=== PATIENT | female | born 1965 | race Caucasian/White ===

== ENCOUNTER 2017-06-19 17:10 | Inpatient (IN) | payer BC, OTHER ==
[~2017-06-19 17:10] MED LIST: AMLO5TAB2 PO; DOLU1TAB PO; FAMC500T PO; GABA300C5 PO; NORC5TAB PO; TRUV200300 PO
[2017-06-19 17:11] VITALS: BP 134/64; PULSE 154; RESP 28; TEMP 102.3; O2SAT 95
[2017-06-19] MEDS ORDERED: IOHEXOL 350 MG/ML 10 ML VIAL (for RAD DIAG) IVCONTRAST ONE (17:11)
[2017-06-19] MEDS ORDERED: SODIUM CHLOR 0.9% 1000 ML INJ 1,000 ML IV ONE ×2 (17:43→22:30)
[2017-06-19] MEDS ORDERED: SODIUM CHLOR 0.9% 1000 ML INJ 800 ML IV ONE (17:43)
[2017-06-19] MEDS ORDERED: ONDANSETRON HCL 4 MG/2 ML VIAL IV PUSH ONE (17:45)
[2017-06-19] MEDS ORDERED: ACETAMINOPHEN 650 MG SUPP RECTAL ONE (17:45)
[2017-06-19 18:15] LABS: AUTOMATED NEUTROPHIL # 16.5 TH/MM3 (1.8-7.7); HEMATOCRIT 30.7 % (35.0-46.0); HEMO FLAGS DIFF FINAL; LYMPH % 3.1 % (9.0-44.0); LYMPHOCYTE # 0.6 TH/MM3 (1.0-4.8); MEAN CELL VOLUME 97.7 FL (80.0-100.0); MEAN CORPUSCULAR HEMOGLOBIN 33.2 PG (27.0-34.0); MONO % 7.1 % (0.0-8.0); NEUT % 89.8 % (16.0-70.0); PLATELET COUNT 261 TH/MM3 (150-450); RED BLOOD COUNT 3.14 MIL/MM3 (4.00-5.30); RED CELL DISTRIBUTION WIDTH 13.5 % (11.6-17.2); WHITE BLOOD COUNT 18.4 TH/MM3 (4.0-11.0)
[2017-06-19 18:30] LABS: APTT (PATIENT) 33.5 SEC (24.3-30.1); INTERNATIONAL NORMALIZED RATIO 1.1 RATIO; PROTHROMBIN TIME - PATIENT 12.4 SEC (9.8-11.6)
[2017-06-19 18:31] VITALS: RESP 18; O2SAT 98
[2017-06-19 18:43] LABS: ALKALINE PHOSPHATASE 140 U/L (45-117); ALT (GPT) 17 U/L (10-53); ANION GAP 12 MEQ/L (5-15); AST (GOT) 15 U/L (15-37); BICARBONATE 19.9 MEQ/L (21.0-32.0); BLOOD UREA NITROGEN 18 MG/DL (7-18); CHLORIDE 99 MEQ/L (98-107); GLOMERULAR FILTRATION RATE 43 ML/MIN (>89); SODIUM (NA) 131 MEQ/L (136-145); TOTAL BILIRUBIN ADULT 1.3 MG/DL (0.2-1.0)
[2017-06-19 18:47] LABS: POTASSIUM 2.9 MEQ/L (3.5-5.1)
--- NOTE | 2017-06-19 19:03 | PD ---
HPI Chief Complaint: Fever Time Seen by Provider: 18:10 Travel History International Travel<30 days: No Contact w/Intl Traveler<30days: No Traveled to known affect area: No History of Present Illness HPI Patient is a 51-year-old female that presents emergency department evaluation of nausea, vomiting, abdominal pain. Patient states it started on Sunday, she 's been able to tolerate sips of fluids. She denies any diarrhea, she hasn't taken her temperature has felt chilled and sweaty. She denies any shortness of breath or chest pain. Patient has a history of HIV, she is currently on HAART. She denies any sick contacts. She denies any contaminated foods. Abdominal pain is rated 8 out of 10. She states it is crampy. PFSH Past Medical History Hx Anticoagulant Therapy: No Arthritis: Yes (R.A. per pt.) Asthma: No Autoimmune Disease: No Blood Disorders: No Anxiety: No Depression: No Heart Rhythm Problems: No Cancer: No Cardiovascular Problems: Yes (HTN) Chemotherapy: No Chest Pain: No Congestive Heart Failure: No COPD: No Cerebrovascular Accident: No Diabetes: No Diminished Hearing: No Endocrine: No GERD: No Glaucoma: No Genitourinary: No Headaches: No Hepatitis: No Hiatal Hernia: No Hypertension: Yes Immune Disorder: No Kidney Stones: No Medical other: Yes (HIV positive) Musculoskeletal: No Neurologic: Yes Respiratory: No Myocardial Infarction: No Radiation Therapy: No Renal Failure: No Seizures: No Sickle Cell Disease: No Sleep Apnea: No Thyroid Disease: No Ulcer: No : 3 Para: 1 Miscarriage: 1 : 0 Ectopic : Yes (x1) Past Surgical History Abdominal Surgery: No AICD: No Cardiac Surgery: No Ear Surgery: No Endocrine Surgery: No Eye Surgery: No Genitourinary Surgery: No Gynecologic Surgery: Yes (LEFT OOPHARECTOMY ) Hysterectomy: No Joint Replacement: No Oral Surgery: No Pacemaker: No Thoracic Surgery: No Social History Alcohol Use: Yes (occ) Tobacco Use: Yes Substance Use: Yes (Occassional Marijuanna or Lortab per pt.) Allergies-Medications (Allergen,Severity, Reaction): Coded Allergies: promethazine (Unverified Adverse Reaction, Severe, extrapyramidal symptoms , 03/20/17) sts gives her the "jitters"/nervousness Reported Meds & Prescriptions Reported Meds & Active Scripts Active Gabapentin 300 Mg Cap 300 Mg PO TID Take one 300mg tab on day 1 Then take 300mg tab twice/day on day 2 then take 300mg tab three times/day thereafter [place] (Hydrocodone-Acetaminophen) 5-325 mg Tab 1 Tab PO Q4H PRN Amlodipine (Amlodipine Besylate) 5 Mg Tab 5 Mg PO DAILY Reported Famciclovir 500 Mg Tab 500 Mg PO DAILY Tivicay (Dolutegravir Sodium) 50 Mg Tab 50 Mg PO DAILY Truvada (Emtricitabine-Tenofovir Disoproxil Fumarate) 200-300 Mg Tab 1 Tab PO DAILY Review of Systems Except as stated in HPI: all other systems reviewed are Neg General / Constitutional: Positive: Fever, Chills HENT: Positive: Headaches Cardiovascular: Positive: Tachycardia, No: Chest Pain or Discomfort Respiratory: No: Shortness of Breath Gastrointestinal: Positive: Nausea, Vomiting, Abdominal Pain, No: Diarrhea Genitourinary: No: Dysuria Musculoskeletal: Positive: Myalgias Skin: No Change in Pigmentation Neurologic: Positive: Weakness, No: Dizziness, Focal Abnormalities Physical Exam Narrative GENERAL: Thin, well-developed, alert acutely ill-appearing female. In no acute distress. SKIN: Warm and dry. Clammy HEAD: Atraumatic. Normocephalic. EYES: Pupils equal and round. No scleral icterus. No injection or drainage. ENT: No nasal bleeding or discharge. Mucous membranes pink and moist. NECK: Trachea midline. No JVD. No meningeal signs. CARDIOVASCULAR: Tachycardic RESPIRATORY: No accessory muscle use. Clear to auscultation. Breath sounds equal bilaterally. GASTROINTESTINAL: Abdomen soft, tender to palpation diffusely, more so in the right upper quadrant, nondistended. Hepatic and splenic margins not palpable. Positive bowel sounds. MUSCULOSKELETAL: Extremities without clubbing, cyanosis, or edema. No obvious deformities. NEUROLOGICAL: Awake and alert. No obvious cranial nerve deficits. Motor grossly within normal limits. Five out of 5 muscle strength in the arms and legs. Normal speech. PSYCHIATRIC: Appropriate mood and affect; insight and judgment normal. Data Data Last Documented VS Vital Signs Date Time Temp Pulse Resp B/P (MAP) Pulse Ox O2 Delivery O2 Flow Rate FiO2 06/19/17 22:10 77 18 88/53 (65) 98 Room Air 06/19/17 17:11 102.3 Orders Orders Sepsis Workup Initiated (06/19/17 ) Complete Blood Count With Diff (06/19/17 17:16) Comprehensive Metabolic Panel (06/19/17 17:16) Prothrombin Time / Inr (Pt) (06/19/17 17:16) Act Partial Throm Time (Ptt) (06/19/17 17:16) Lactic Acid Sepsis Protocol (06/19/17 17:16) Urinalysis - C+S If Indicated (06/19/17 17:16) Influenzae A/B Antigen (06/19/17 17:16) Blood Culture (06/19/17 17:16) Chest, Pa & Lat (06/19/17 17:16) Lipase (06/19/17 17:16) Sepsis Workup Initiated (06/19/17 ) Acetaminophen Supp (Tylenol Supp) (06/19/17 17:45) Ondansetron Inj (Zofran Inj) (06/19/17 17:45) Sodium Chlor 0.9% 1000 Ml Inj (Ns 1000 M (06/19/17 17:43) Sodium Chlor 0.9% 1000 Ml Inj (Ns 1000 M (06/19/17 17:43) Iv Access Insert/Monitor (06/19/17 17:43) Ecg Monitoring (06/19/17 17:43) Oximetry (06/19/17 17:43) NPO (06/19/17 17:43) Potassium Chlor 20 Meq Premix (Kcl 20 Me (06/19/17 19:00) Ketorolac Inj (Toradol Inj) (06/19/17 20:00) Ct Abd/Pel W Iv Contrast(Rout) (06/19/17 ) Iohexol 350 Inj (Omnipaque 350 Inj) (06/19/17 17:11) Cath For Specimen (06/19/17 21:21) Urine Culture (06/19/17 21:30) Sodium Chlor 0.9% 1000 Ml Inj (Ns 1000 M (06/19/17 22:30) Vancomycin Inj (Vancomycin Inj) (06/19/17 22:27) Piperacil-Tazo 4.5 Gm Premix (Zosyn 4.5 (06/19/17 22:27) Admit Order (Ed Use Only) (06/19/17 22:38) Labs Laboratory Tests Test 06/19/17 18:00 11/14/17 21:30 White Blood Count 18.4 TH/MM3 Red Blood Count 3.14 MIL/MM3 Hemoglobin 10.4 GM/DL Hematocrit 30.7 % Mean Corpuscular Volume 97.7 FL Mean Corpuscular Hemoglobin 33.2 PG Mean Corpuscular Hemoglobin Concent 34.0 % Red Cell Distribution Width 13.5 % Platelet Count 261 TH/MM3 Mean Platelet Volume 7.8 FL Neutrophils (%) (Auto) 89.8 % Lymphocytes (%) (Auto) 3.1 % Monocytes (%) (Auto) 7.1 % Eosinophils (%) (Auto) 0.0 % Basophils (%) (Auto) 0.0 % Neutrophils # (Auto) 16.5 TH/MM3 Lymphocytes # (Auto) 0.6 TH/MM3 Monocytes # (Auto) 1.3 TH/MM3 Eosinophils # (Auto) 0.0 TH/MM3 Basophils # (Auto) 0.0 TH/MM3 CBC Comment DIFF FINAL Differential Comment Prothrombin Time 12.4 SEC Prothromb Time International Ratio 1.1 RATIO Activated Partial Thromboplast Time 33.5 SEC Blood Urea Nitrogen 18 MG/DL Creatinine 1.32 MG/DL Random Glucose 157 MG/DL Total Protein 8.0 GM/DL Albumin 2.5 GM/DL Calcium Level 8.2 MG/DL Alkaline Phosphatase 140 U/L Aspartate Amino Transf (AST/SGOT) 15 U/L Alanine Aminotransferase (ALT/SGPT) 17 U/L Total Bilirubin 1.3 MG/DL Sodium Level 131 MEQ/L Potassium Level 2.9 MEQ/L Chloride Level 99 MEQ/L Carbon Dioxide Level 19.9 MEQ/L Anion Gap 12 MEQ/L Estimat Glomerular Filtration Rate 43 ML/MIN Lactic Acid Level 2.0 mmol/L Lipase 54 U/L Urine Color YELLOW Urine Turbidity HAZY Urine pH 7.0 Urine Specific [place] 1.025 Urine Protein 100 mg/dL Urine Glucose (UA) NEG mg/dL Urine Ketones NEG mg/dL Urine Occult Blood MOD Urine Nitrite POS Urine Bilirubin NEG Urine Urobilinogen 2.0 MG/DL Urine Leukocyte Esterase LARGE Urine RBC 4 /hpf Urine WBC 126 /hpf Urine Squamous Epithelial Cells 12 /hpf Urine Transitional Epithelial Cells 2 /hpf Urine Amorphous Sediment RARE Urine Bacteria MANY /hpf Microscopic Urinalysis Comment CATH-CULTURE IND MDM Medical Decision Making Medical Screen Exam Complete: Yes Emergency Medical Condition: Yes Interpretation(s) Vital Signs Date Time Temp Pulse Resp B/P (MAP) Pulse Ox O2 Delivery O2 Flow Rate FiO2 06/19/17 22:10 77 18 88/53 (65) 98 Room Air 06/19/17 18:31 18 98 Room Air 06/19/17 17:11 102.3 154 28 134/64 (87) 95 Last Impressions Chest X-Ray 06/19/17 1716 Signed Impressions: Service Date/Time: Monday, June 19, 2017 18:51 - CONCLUSION: No acute disease. Ld Bedoya MD Laboratory Tests Test 06/19/17 18:00 06/19/17 21:30 White Blood Count 18.4 TH/MM3 Red Blood Count 3.14 MIL/MM3 Hemoglobin 10.4 GM/DL Hematocrit 30.7 % Mean Corpuscular Volume 97.7 FL Mean Corpuscular Hemoglobin 33.2 PG Mean Corpuscular Hemoglobin Concent 34.0 % Red Cell Distribution Width 13.5 % Platelet Count 261 TH/MM3 Mean Platelet Volume 7.8 FL Neutrophils (%) (Auto) 89.8 % Lymphocytes (%) (Auto) 3.1 % Monocytes (%) (Auto) 7.1 % Eosinophils (%) (Auto) 0.0 % Basophils (%) (Auto) 0.0 % Neutrophils # (Auto) 16.5 TH/MM3 Lymphocytes # (Auto) 0.6 TH/MM3 Monocytes # (Auto) 1.3 TH/MM3 Eosinophils # (Auto) 0.0 TH/MM3 Basophils # (Auto) 0.0 TH/MM3 CBC Comment DIFF FINAL Differential Comment Prothrombin Time 12.4 SEC Prothromb Time International Ratio 1.1 RATIO Activated Partial Thromboplast Time 33.5 SEC Blood Urea Nitrogen 18 MG/DL Creatinine 1.32 MG/DL Random Glucose 157 MG/DL Total Protein 8.0 GM/DL Albumin 2.5 GM/DL Calcium Level 8.2 MG/DL Alkaline Phosphatase 140 U/L Aspartate Amino Transf (AST/SGOT) 15 U/L Alanine Aminotransferase (ALT/SGPT) 17 U/L Total Bilirubin 1.3 MG/DL Sodium Level 131 MEQ/L Potassium Level 2.9 MEQ/L Chloride Level 99 MEQ/L Carbon Dioxide Level 19.9 MEQ/L Anion Gap 12 MEQ/L Estimat Glomerular Filtration Rate 43 ML/MIN Lactic Acid Level 2.0 mmol/L Lipase 54 U/L Vital Signs Date Time Temp Pulse Resp B/P (MAP) Pulse Ox O2 Delivery O2 Flow Rate FiO2 06/19/17 18:31 18 98 Room Air 06/19/17 17:11 102.3 154 28 134/64 (87) 95 Differential Diagnosis Influenza versus viral syndrome versus cholecystitis versus pancreatitis versus obstruction versus metabolic abnormality versus other Narrative Course Patient is a 51-year-old HIV-positive female presenting to the emergency department for evaluation of fevers and abdominal pain. Patient reports nausea and vomiting, her symptoms started on Sunday. Patient is tachycardic and hypotensive on arrival. She appears uncomfortable and is diaphoretic. Labs and imaging ordered and pending. Sepsis workup initiated. Acetaminophen suppository ordered. CBC with a white count of 18.4 with left shift Chemistry with a sodium of 131, potassium 2.9. IV potassium replacement ordered. Creatinine 1.32, lactic acid 2.0, lipase is 54. Chest x-ray which was read by the radiologist as no acute disease. CT of abdomen and pelvis shows no acute abnormality. Patient's vital signs are reassessed, she is currently afebrile. Her blood pressure is 88/54, a third liter of IV fluids ordered. Patient reevaluated, she is resting comfortably, she is alert. She reports improvement in her body aches, abdominal pain, headache. Urinalysis is consistent with a urinary tract infection. Patient will be started on antibiotics empirically. [facility] paged for admission. Discussed with Dr. Merida who accepted admission. Admit orders placed. Sepsis Criteria SIRS Criteria (2 or more): Temp > 100.9 or < 96.8, Heart rate over 90, WBC > 14424, < 4000 or > 10% bands Severe Sepsis (+one): Hypotension Diagnosis Primary Impression: Sepsis secondary to UTI Additional Impression: HIV (human immunodeficiency virus infection) Admitting Information Admitting Physician Requests: Admit Condition: Stable Anne Jeffery ADMINISTRATIVE INTERN Jun 19, 2017 19:03
[2017-06-19] MEDS ORDERED: KETOROLAC TROMETHAMINE 30 MG/ML (IVP) VIAL IV PUSH ONE (20:00)
--- NOTE | 2017-06-19 20:17 | RADRPT ---
EXAM DATE/TIME: 06/19/2017 18:51 [facility] COMPARISON: No previous studies available for comparison. INDICATIONS : Flu-like symptoms for several days. MEDICAL HISTORY : None. SURGICAL HISTORY : None. ENCOUNTER: Initial ACUITY: 3 days PAIN SCORE: 7/10 LOCATION: Bilateral upper chest FINDINGS: PA and lateral views of the chest demonstrate the lungs to be symmetrically aerated without evidence of mass, infiltrate or effusion. The cardiomediastinal contours are unremarkable. Osseous structure s are intact. CONCLUSION: No acute disease. Ld Bedoya MD on June 19, 2017 at 20:16 Board Certified Radiologist. This report was verified electronically.
[2017-06-19] MEDS: POTASSIUM CHLOR 20 MEQ PREMIX 100 ML IV SCH ×2 (20:31→23:05)
[2017-06-19 22:10] VITALS: BP 88/53; PULSE 77; RESP 18; O2SAT 98
--- NOTE | 2017-06-19 22:14 | RADRPT ---
EXAM DATE/TIME: 06/19/2017 21:08 [facility] COMPARISON: No previous studies available for comparison. INDICATIONS : Right upper quadrant pain radiating to back with nausea and vomiting. IV CONTRAST: 75 cc Omnipaque 350 (iohexol) IV ORAL CONTRAST: No oral contrast ingested. RADIATION DOSE: 4.73 CTDIvol (mGy) MEDICAL HISTORY : HIV. Cardiovascular disease Rheumatoid arthritis.Hypertension. SURGICAL HISTORY : Tubal ligation. ENCOUNTER: Initial ACUITY: 3 days PAIN SCALE: 6/10 LOCATION: Right upper quadrant TECHNIQUE: Volumetric scanning of the abdomen and pelvis was performed. Using automated exposure control and ad justment of the mA and/or kV according to patient size, radiation dose was kept as low as reasonably achievable to obtain optimal diagnostic quality images. DICOM format image data is available electro nically for review and comparison. FINDINGS: LOWER LUNGS: There is linear density at the bases bilaterally likely related to scarring or atelectasis. LIVER: The liver appears mildly heterogeneous without lesion. There is no dilation of the biliary tree. No calcified gallstones. SPLEEN: Normal size without lesion. PANCREAS: Within normal limits. KIDNEYS: Normal in size and shape. There is no mass, stone or hydronephrosis. ADRENAL GLANDS: Within normal limits. VASCULAR: There is no aortic aneurysm. BOWEL/MESENTERY: The stomach, small bowel, and colon demonstrate no acute abnormality. There is no free intraperitone al air or fluid. ABDOMINAL WALL: Within normal limits. RETROPERITONEUM: There is no lymphadenopathy. BLADDER: No wall thickening or mass. REPRODUCTIVE: Within normal limits. INGUINAL: There is no lymphadenopathy or hernia. MUSCULOSKELETAL: There is degenerative change of the lower lumbar spine. CONCLUSION: No acute abnormality is seen. There is mild heterogeneity of the liver. Ld Bedoya MD on June 19, 2017 at 22:10 Board Certified Radiologist. This report was verified electronically.
[2017-06-19 22:23] LABS: BACTERIA, URINE MANY /hpf; BLOOD, URINE MOD (NEG); GLUCOSE,URINE NEG (NEG); KETONE, URINE NEG (NEG); NITRITE,URINE POS (NEG); SQUAMOUS EPITHELIAL CELL URINE 12 /hpf (0-5); TRANSITIONAL EPI CELLS, URINE 2 /hpf; URINE COLOR YELLOW (YELLW/STRAW)
[2017-06-19 22:24] LABS: COMMENT (UR) CATH-CULTURE IND; CULTURE IF INDICATED CATH CULTURE IND
[2017-06-19] MEDS ORDERED: PIPERACIL-TAZO 4.5 GM PREMIX 100 ML IV STA (22:27)
[2017-06-19] MEDS ORDERED: VANCOMYCIN INJ 1,000 MG in SODIUM CHLOR 0.9% 250 ML INJ 250 ML IV STA (22:27)
[2017-06-19] MEDS ORDERED: ONDANSETRON HCL 4 MG/2 ML VIAL IVP PRN (23:15)
[2017-06-19] MEDS ORDERED: SODIUM CHLORIDE 0.9% FLUSH 10 ML FLUSH IV FLUSH PRN (23:15)
[2017-06-19] MEDS ORDERED: NALOXONE HCL 0.4 MG/ML AMP IV PUSH PRN (23:15)
[2017-06-20] VITALS (9 sets, daily range): BP systolic 87–116; BP diastolic 51–58; PULSE 78–101; RESP 16–19; TEMP 98.3–100.3; O2SAT 96–100
[2017-06-20] MEDS: SODIUM CHLOR 0.9% 1000 ML INJ 1,000 ML IV SCH ×3 (00:07→19:07)
[2017-06-20] MEDS: ENOXAPARIN SODIUM 40 MG/0.4 ML SYRINGE SQ SCH ×2 (02:00→22:00)
[2017-06-20] MEDS ORDERED: POTASSIUM CHLORIDE 20 MEQ CONTROLLED RELEASE TAB PO ONE (03:30)
--- NOTE | 2017-06-20 04:43 | HHI.HP ---
HPI Service Family Medicine Primary Care Physician Unknown Admission Diagnosis UROSEPSIS Diagnoses: International Travel<30 Days: No Contact w/Intl Traveler<30days: No Known Affected Area: No History of Present Illness 51 year old female with a history of HIV disease presents to the ED with epigastric abdominal pain. Patient of Dr. Pacheco in the [facility]. The pain has been present for the past 2 to 3 weeks and is feeling worse today. She has decreased appetite and vomits about 4 times a day. Vomit is non-bilious and non-bloody. Her bowel movements have been normal, with well-formed stools that are non- bloody and without mucous. Her PO intake is down and she is eating mostly soups. She felt dehydrated on admission but now feels a lot better after receiving IV fluids. She also has been having fevers and chills. She had a similar episode in May that she says self-resolved. In the ED she was tachycardic with BP down to 88/53 and pulse up to 154, and temperature up to 102.3. She received three boluses of one liter normal saline in the ED follows by 100 mls/hr for maintenance. She feels much better since receiving the fluids. Currently she only has abdominal pain, without feeling lightheaded. Her pulse is now down to 80's to 90's, and she remains hypotensive at 99/60 during interview. Her abdominal pain is currently controlled but does become severe at times. CT of the abdomen and pelvis done in the ED shows no acute abnormality. She was also started on vancomycin and Zosyn. Workup thus far has revealed likely pyelonephritis, with positive nitrites and large leukocyte esterase. She reports no dysuria, frequent urination, or flank pain. She reports no blood in the urine. Regarding her HIV disease her last labs were drawn in November and showed a CD4 273, CD8 273, CD4/8 ratio 1.0, and undetectable viral load. She was always consistent with her HAART medications, but for the past month or so she has been inconsistent due to abdominal pain and vomiting. She follows with Dr. Mariano. She reports no history of opportunistic infections and states that her disease has been well controlled. On review of systems, she had a headache earlier that has resolved, no neck stiffness, no runny nose, coughing, sore throat, chest pain, shortness of breath, calf tenderness. She has not noticed any lymph nodes and no new skin findings. She does report significant weight loss recently due to poor appetite, abdominal pain, and vomiting. Review of Systems Constitutional: COMPLAINS OF: Diaphoretic episodes, Fever, Weight loss, Chills , Change in appetite, Night Sweats Endocrine: DENIES: Heat/cold intolerance, Polyuria, Polyphagia Ears, nose, mouth, throat: DENIES: Throat pain, Ear Pain, Running Nose, Sinus Pain Respiratory: DENIES: Cough, Wheezing, Shortness of breath Cardiovascular: DENIES: Chest pain, Palpitations, Syncope, Lower Extremity Edema Gastrointestinal: COMPLAINS OF: Abdominal pain, Nausea, Vomiting, DENIES: Black stools, Bloody stools, Constipation, Diarrhea Genitourinary: DENIES: Abnormal vaginal bleeding, Urinary frequency, Urinary incontinence Musculoskeletal: COMPLAINS OF: Back pain (chronic), DENIES: Muscle aches, Neck pain Integumentary: DENIES: Rash Neurologic: DENIES: Localized weakness, Tremor Psychiatric: DENIES: Anxiety, Depression Past Family Social History Past Medical History Ectopic age 39 Rheumatoid arthritis since 2003: takes Tylenol and Motrin Sjogren's Syndrome HIV disease: sees Dr. Mariano, infectious disease HAART: not taking regularly last couple months due to stomach problems, was compliant before that Most recent labs were drawn in November and showed a CD4 273, CD8 273, CD4/8 ratio 1.0, and undetectable viral load Hypertension: was taking taking amlodipine 5 mg daily, but not compliant Infectious disease doctor [place] Does not have licensed physical therapist: was supposed to Dr. Mccoy but never did OB hx: Menarche at age 15 Menstruation Q28 days, lasts 4 days Past Surgical History Ectopic Reported Medications Reported Meds & Active Scripts Active Gabapentin 300 Mg Cap 300 Mg PO TID Take one 300mg tab on day 1 Then take 300mg tab twice/day on day 2 then take 300mg tab three times/day thereafter [place] (Hydrocodone-Acetaminophen) 5-325 mg Tab 1 Tab PO Q4H PRN Amlodipine (Amlodipine Besylate) 5 Mg Tab 5 Mg PO DAILY Reported Famciclovir 500 Mg Tab 500 Mg PO DAILY Tivicay (Dolutegravir Sodium) 50 Mg Tab 50 Mg PO DAILY Truvada (Emtricitabine-Tenofovir Disoproxil Fumarate) 200-300 Mg Tab 1 Tab PO DAILY Allergies: Coded Allergies: promethazine (Unverified Adverse Reaction, Severe, extrapyramidal symptoms , 03/20/17) sts gives her the "jitters"/nervousness Active Ordered Medications Inpatient Medications Acetaminophen (Tylenol Supp) 650 mg ONCE ONCE RECTAL Last administered on 18:33; Start 06/19/17 at 17:45; Stop 06/19/17 at 17:46; Status DC Acetaminophen (Tylenol) 650 mg Q4H PRN PO TEMP > 100.4; Start 06/19/17 at 23: 15 Amlodipine Besylate (Norvasc) 5 mg DAILY PO ; Start 06/20/17 at 09:00 Emtricitabine/ Tenofovir (Truvada 200-300 Mg) 1 tab DAILY PO ; Start 06/20/17 at 09:00 Enoxaparin Sodium (Lovenox Inj) 40 mg Q24H SQ Last administered on 06/20/17 02:00; Start 06/19/17 at 23:15 Famciclovir (Famvir) 500 mg DAILY PO ; Start 06/20/17 at 09:00 Gabapentin (Neurontin) 300 mg TID PO ; Start 06/20/17 at 09:00 Ketorolac Tromethamine (Toradol Inj) 30 mg ONCE ONCE IV PUSH Last administered on 06/19/17 20:07; Start 06/19/17 at 20:00; Stop 06/19/17 at 20 :01; Status DC Naloxone HCl (Narcan Inj) 0.4 mg UNSCH PRN IV PUSH SEE LABEL COMMENTS; Start 06/19/17 at 23:15 Ondansetron HCl (Zofran Inj) 4 mg Q6H PRN IVP NAUSEA OR VOMITING; Start at 23:15 Piperacillin Sod/ Tazobactam Sod 50 ml @ 100 mls/hr Q6H IV ; Start 06/20/17 at 08:00 Potassium Chloride (KCl) 40 meq ONCE ONCE PO Last administered on 06/20/17 03:58; Start 06/20/17 at 03:30; Stop 06/20/17 at 03:34; Status DC Sodium Chloride (NS Flush) 2 ml BID IV FLUSH ; Start 06/20/17 at 09:00 Vancomycin HCl 1000 mg/Sodium Chloride 250 ml @ 250 mls/hr ONCE STAT IV Last administered on 06/20/17t 02:54; Start 06/19/17 at 22:27; Stop 06/19/17 at 23 :26; Status DC Family History Unknown, adopted Social History Lives with boyfriend and mother in law, and boyfriend's 7 year old daughter Was going back and forth to [place] to take care of ailing father, recently put on hospice 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 BP 99/60, pulse 80's-90's during interview. Skin: No rashes or lesions, normal skin turgor, skin is moist HEENT: Normocephalic, no nasal discharge, moist oropharynx, pharynx is normal Neck: Supple, no meningeal signs, no lymphadenopathy CV: RRR, no murmurs, rubs, or gallops, pulse 80's-90's, normal cap refill, pulses regular, appears well perfused Lungs: CTAB, no wheezing, no consolidations Abdomen: Tender to palpation in the epigastric region, no guarding or rebound tenderness, bowel sounds present, soft, nondistended, no peritoneal signs Ext: No swelling, normal range of motion Neuro: Awake, alert, nonfocal Psych: Appropriate mood and affect Laboratory Laboratory Tests Test 06/19/17 18:00 06/19/17 21:30 White Blood Count 18.4 Red Blood Count 3.14 Hemoglobin 10.4 Hematocrit 30.7 Mean Corpuscular Volume 97.7 Mean Corpuscular Hemoglobin 33.2 Mean Corpuscular Hemoglobin Concent 34.0 Red Cell Distribution Width 13.5 Platelet Count 261 Mean Platelet Volume 7.8 Neutrophils (%) (Auto) 89.8 Lymphocytes (%) (Auto) 3.1 Monocytes (%) (Auto) 7.1 Eosinophils (%) (Auto) 0.0 Basophils (%) (Auto) 0.0 Neutrophils # (Auto) 16.5 Lymphocytes # (Auto) 0.6 Monocytes # (Auto) 1.3 Eosinophils # (Auto) 0.0 Basophils # (Auto) 0.0 CBC Comment DIFF FINAL Differential Comment Prothrombin Time 12.4 Prothromb Time International Ratio 1.1 Activated Partial Thromboplast Time 33.5 Blood Urea Nitrogen 18 Creatinine 1.32 Random Glucose 157 Total Protein 8.0 Albumin 2.5 Calcium Level 8.2 Alkaline Phosphatase 140 Aspartate Amino Transf (AST/SGOT) 15 Alanine Aminotransferase (ALT/SGPT) 17 Total Bilirubin 1.3 Sodium Level 131 Potassium Level 2.9 Chloride Level 99 Carbon Dioxide Level 19.9 Anion Gap 12 Estimat Glomerular Filtration Rate 43 Lactic Acid Level 2.0 Lipase 54 Urine Color YELLOW Urine Turbidity HAZY Urine pH 7.0 Urine Specific Maurice 1.025 Urine Protein 100 Urine Glucose (UA) NEG Urine Ketones NEG Urine Occult Blood MOD Urine Nitrite POS Urine Bilirubin NEG Urine Urobilinogen 2.0 Urine Leukocyte Esterase LARGE Urine RBC 4 Urine WBC 126 Urine Squamous Epithelial Cells 12 Urine Transitional Epithelial Cells 2 Urine Amorphous Sediment RARE Urine Bacteria MANY Microscopic Urinalysis Comment CATH-CULTURE IND Date/Time Source Procedure Growth Status 06/19/17 18:09 Blood Peripheral Aerobic Blood Culture Pending Received 06/19/17 18:09 Blood Peripheral Anaerobic Blood Culture Pending Received 06/19/17 18:30 Nasal Washing Influenza Types A,B Antigen (WOODY) - Final NEGATIVE FOR FLU A AND B ANTIGEN.... Complete 06/19/17 21:30 Urine Catheterized Urine Urine Culture Pending Received Result Diagram: 06/19/17 1800 06/19/17 1800 Imaging Last 72 hours Impressions Chest X-Ray 06/19/17 1716 Signed Impressions: Service Date/Time: Monday, June 19, 2017 18:51 - CONCLUSION: No acute disease. Ld Bedoya MD Abdomen/Pelvis CT 06/19/17 0000 Signed Impressions: Service Date/Time: Monday, June 19, 2017 21:08 - CONCLUSION: No acute abnormality is seen. There is mild heterogeneity of the liver. Ld Bedoya MD Septic Shock Reassessment Heart: Regular rate and rhythm, Other (was initially tachycardic, resolved with IV fluids) Lungs: Clear Skin: Warm Capillary Refill: <2 seconds Caprini VTE Risk Assessment Caprini VTE Risk Assessment: Mod/High Risk (score >= 2) Caprini Risk Assessment Model Point Value = 1 Point Value = 2 Point Value = 3 Point Value = 5 Age 41-60 Minor surgery BMI > 25 kg/m2 Swollen legs Varicose veins or History of unexplained or recurrent spontaneous Oral contraceptives or hormone replacement Sepsis (< 1 month) Serious lung disease, including pneumonia (< 1 month) Abnormal pulmonary function Acute myocardial infarction Congestive heart failure (< 1 month) History of inflammatory bowel disease Medical patient at bed rest Age 61-74 Arthroscopic surgery Major open surgery (> 45 min) Laparoscopic surgery (> 45 min) Malignancy Confined to bed (> 72 hours) Immobilizing plaster cast Central venous access Age >= 75 History of VTE Family history of VTE Factor V Leiden Prothrombin [id number] Lupus anticoagulant Anticardiolipin antibodies Elevated serum homocysteine Heparin-induced thrombocytopenia Other congenital or acquired thrombophilia Stroke (< 1 month) Elective arthroplasty Hip, pelvis, or leg fracture Acute spinal cord injury (< 1 month) Prophylaxis Regimen Total Risk Factor Score Risk Level Prophylaxis Regimen 0-1 Low Early ambulation 2 Moderate Order ONE of the following: *Sequential Compression Device (SCD) *Heparin 5000 units SQ BID 3-4 Higher Order ONE of the following medications: *Heparin 5000 units SQ TID *Enoxaparin/Lovenox 40 mg SQ daily (WT < 150 kg, CrCl > 30 mL/min) *Enoxaparin/Lovenox 30 mg SQ daily (WT < 150 kg, CrCl > 10-29 mL/min) *Enoxaparin/Lovenox 30 mg SQ BID (WT < 150 kg, CrCl > 30 mL/min) AND/OR *Sequential Compression Device (SCD) 5 or more Highest Order ONE of the following medications: *Heparin 5000 units SQ TID (Preferred with Epidurals) *Enoxaparin/Lovenox 40 mg SQ daily (WT < 150 kg, CrCl > 30 mL/min) *Enoxaparin/Lovenox 30 mg SQ daily (WT < 150 kg, CrCl > 10-29 mL/min) *Enoxaparin/Lovenox 30 mg SQ BID (WT < 150 kg, CrCl > 30 mL/min) AND *Sequential Compression Device (SCD) Assessment and Plan Assessment and Plan 51 year old female with a history of HIV disease presents with severe sepsis likely secondary to pyelonephritis. Code Status FULL CODE Discussed Condition With Will discuss with Dr. Patterson, Dr. Newton Problem List: (1) Severe sepsis ICD Codes: A41.9 - Sepsis, unspecified organism; R65.20 - Severe sepsis without septic shock Status: Acute Plan: Presented with severe sepsis, beginning stages of septic shock, with white count 18.4, pulse up to 154, fever up to 102.3, and BP down to 88/53. Lactic acid 2.0. Source likely pyelonephritis given UA with positive nitrite, large leukocyte esterase, 126 WBC, trace blood. No flank pain on exam, no report of dysuria. Chest x-ray normal. Having abdominal pain but exam relatively benign. Abdominal and pelvic CT negative for acute process. No neck stiffness or meningeal signs on exam. - Received three 1 liter boluses in the ED with correction of pulse, BP on the low side but MAP improved from 65 to 73. - Continue with maintenance fluids 100 mls/hr of normal saline, repeat boluses as needed. - Low threshold for ICU if declining, monitor vital signs closely. - Treat broadly with Vancomycin and Zosyn, pharmacy consult for renal dosing - Follow blood and urine cultures - Check CD4, CD8, and HIV viral load. - Tylenol PRN for fevers (2) Pyelonephritis ICD Codes: N12 - Tubulo-interstitial nephritis, not specified as acute or chronic Status: Acute Plan: Meets criteria for complicated pyelonephritis given UA results indicating WBC, large leukocyte esterase, and positive nitrite in urine, high fevers, elevated white count, tachycardia, hypotension. Immunosuppression with history of HIV disease. - Continue Vancomycin and Zosyn for broad coverage (3) Epigastric abdominal pain ICD Codes: R10.13 - Epigastric pain Status: Acute Plan: Having epigastric abdominal pain for the last couple months associated with nausea and vomiting, stools normal. Differential is broad, including peptic ulcer disease, gastroenteritis, ischemic colitis, generalized colitis, c.diff, biliary tract disease, pancreatitis, inferior TN. Lipase is normal. AST and ALT are normal. ALP slightly high at 140. CT abdomen/pelvis shows no acute disease. - Will check one time troponin/EKG - Consult GI for chronic abdominal pain and nausea/vomiting and uncertain diagnosis, may benefit from EGD to rule out PUD - Monitor hemoglobin/hematocrit in case of GI bleed, check hemoccult - Pain management with Percocet 5-325 for mild pain, 10-325 for severe pain. - Zofran PRN for nausea/vomiting, bowel regimen PRN if constipated. - Continue ranitidine and Tums, which she was taking at home. - Full liquid diet, advance as tolerated (4) HIV (human immunodeficiency virus infection) ICD Codes: Z21 - Human immunodeficiency virus (HIV) infection Status: Chronic Plan: History of HIV, was controlled in the past, but inconsistent HAART use recently due to abdominal pain and vomiting. Most recent labs were drawn in November and showed a CD4 273, CD8 273, CD4/8 ratio 1.0, and undetectable viral load. Infectious disease Dr. Mariano. - Check CD4, CD8, and viral load - Resume HAART medications - May consult infectious disease if not quickly improving (5) Acute kidney injury ICD Codes: N17.9 - Acute kidney failure, unspecified Status: Acute Plan: Acute kidney injury, likely prerenal from sepsis, dehydration. - Continue IV fluids - Avoid nephrotoxic agents - Renally dose medications - Nephrology consult if not resolving with IV fluids (6) Rheumatoid arthritis ICD Codes: M06.9 - Rheumatoid arthritis, unspecified Status: Chronic Plan: Stable - Hold NSAIDs for ZAIN - See abdominal pain for pain regimen (7) No contraindication to deep vein thrombosis (DVT) prophylaxis ICD Codes: Z78.9 - Other specified health status Status: Acute Plan: Lovenox 40 mg daily, hold if hemoglobin dropping or concern for peptic ulcer disease (8) Nutrition, metabolism, and development symptoms ICD Codes: R63.8 - Other symptoms and signs concerning food and fluid intake Status: Acute Plan: Received three 1 liter boluses in ED Continue with maintenance fluids normal saline at 100 mls/hr Full liquid diet, advance as tolerated Low potassium, replace and monitor Low sodium/chloride secondary to dehydration, continue IV fluids and monitor Physician Certification 2 Midnight Certification Type: Admission for Inpatient Services Order for Inpatient Services The services are ordered in accordance with Medicare regulations or non- Medicare payer requirements, as applicable. In the case of services not specified as inpatient-only, they are appropriately provided as inpatient services in accordance with the 2-midnight benchmark. Estimated LOS (days): 3 days is the estimated time the patient will need to remain in the hospital, assuming treatment plan goals are met and no additional complications. Post-Hospital Plan: Demar Christianson MD R3 Jun 20, 2017 04:43
[2017-06-20] MEDS ORDERED: SENNOSIDES 8.6 MG TAB PO PRN (05:00)
[2017-06-20] MEDS ORDERED: BISACODYL 10 MG SUPP RECTAL PRN (05:00)
[2017-06-20] MEDS ORDERED: MAGNESIUM HYDROXIDE SUSP 30 ML CUP PO PRN (05:00)
[2017-06-20] MEDS ORDERED: LACTULOSE SYRUP 20 GM/30 ML CUP PO PRN (05:00)
[2017-06-20] MEDS ORDERED: NALOXONE HCL 0.4 MG/ML AMP IV PUSH PRN (05:00)
[2017-06-20] MEDS ORDERED: CALCIUM CARBONATE 500 MG CHEWABLE TAB CHEW ONE (05:15)
[2017-06-20 05:26] LABS: AUTOMATED NEUTROPHIL # 12.7 TH/MM3 (1.8-7.7); EOSINOPHIL % 0.1 % (0.0-4.0); HEMATOCRIT 27.9 % (35.0-46.0); HEMO FLAGS DIFF FINAL; LYMPH % 5.2 % (9.0-44.0); LYMPHOCYTE # 0.7 TH/MM3 (1.0-4.8); MEAN CELL VOLUME 100.8 FL (80.0-100.0); MEAN CORPUSCULAR HGB CONC 32.7 % (32.0-36.0); MONO % 5.5 % (0.0-8.0); NEUT % 89.2 % (16.0-70.0); PLATELET COUNT 226 TH/MM3 (150-450); RED BLOOD COUNT 2.77 MIL/MM3 (4.00-5.30); RED CELL DISTRIBUTION WIDTH 13.9 % (11.6-17.2); WHITE BLOOD COUNT 14.2 TH/MM3 (4.0-11.0)
[2017-06-20] MEDS: FAMOTIDINE 20 MG TAB PO SCH ×3 (05:48→20:06)
[2017-06-20 06:04] LABS: ALKALINE PHOSPHATASE 125 U/L (45-117); ALT (GPT) 12 U/L (10-53); ANION GAP 9 MEQ/L (5-15); AST (GOT) 11 U/L (15-37); BLOOD UREA NITROGEN 21 MG/DL (7-18); CHLORIDE 106 MEQ/L (98-107); GLOMERULAR FILTRATION RATE 44 ML/MIN (>89); POTASSIUM 3.9 MEQ/L (3.5-5.1); SODIUM (NA) 136 MEQ/L (136-145)
[2017-06-20] MEDS: ACETAMINOPHEN 325 MG TAB PO PRN ×2 (07:10→20:07)
[2017-06-20] MEDS: PIPERACIL-TAZO 3.375 GM PREMIX 50 ML IV SCH ×3 (07:52→20:06)
[2017-06-20] MEDS ORDERED: amLODIPine BESYLATE 5 MG TAB PO SCH (09:00)
[2017-06-20] MEDS: SODIUM CHLORIDE 0.9% FLUSH 10 ML FLUSH IV FLUSH SCH ×2 (09:37→20:06)
[2017-06-20] MEDS: GABAPENTIN 300 MG CAP PO SCH ×3 (09:37→17:38)
[2017-06-20] MEDS: DOCUSATE SODIUM 50 MG/SENNA 8.6 MG TAB PO SCH ×2 (09:38→20:07)
[2017-06-20] MEDS: VANCOMYCIN INJ 1,000 MG in SODIUM CHLOR 0.9% 250 ML INJ 250 ML IV SCH ×2 (10:00→22:00)
[2017-06-20] MEDS: EMTRICITABINE/TENOFOVIR 200 MG/300 MG TAB PO SCH (14:58)
[2017-06-20] MEDS: FAMCICLOVIR 500 MG TAB PO SCH (14:58)
[2017-06-20] MEDS: DOLUTEGRAVIR SODIUM 50 MG TAB PO SCH (14:58)
--- NOTE | 2017-06-20 15:26 | HHI.FPPN ---
Subjective Remarks Mrs. Spencer is febrile to 100.3F overmnight; patient has had stable HR and hypotension with MAP 65-70. Mrs. Spencer reviewed her history; patient reports ~20 lb weight loss in the past 2 months in association with epigastric and R LQ abdominal pain for 6-8 weeks. Patient reports that she has been taking Zantac and Tums but that she has continued to have pain and decreased appetite; she attributed some of her symptoms to stress regarding family , but states that her abdominal pain started prior to her symptoms. Patient reports that Sunday she began having a worsening of pain, vomiting, and high fever. Patient suspected symptoms secondary to the flu. No urinary symptoms, cough, other cold symptoms, or shortness of breath. Patient has had a headache and neck pain but that she feels her symptoms are mild. Patient reports that she has generally been taking her antiretrovirals until the past several months, but that she has only been taking them every other day while away from [facility].Patient has been seeing a infectious physician, Dr. Mariano, earlier this year but states that she missed an appointment so has not been seeing; she has attempted to find another provider but has had difficulty. Patient reports that she had a CD4 <of ~37 in [CD4 reportedly 273 per EMR documentation but I have not yet been able to confirm]. (Dio Patterson MD, R3) Objective Vitals Vital Signs Date Time Temp Pulse Resp B/P (MAP) Pulse Ox O2 Delivery O2 Flow Rate FiO2 06/20/17 12:00 98.9 79 18 95/51 (66) 98 06/20/17 09:55 06/20/17 09:40 98.6 90 18 89/55 (66) 99 Room Air 06/20/17 07:10 100.3 101 19 88/53 (65) 98 Room Air 06/20/17 06:25 98 21 06/20/17 06:00 84 16 87/56 (66) 96 Room Air 06/20/17 01:00 98.3 78 18 103/58 (73) 100 Room Air 06/19/17 22:10 77 18 88/53 (65) 98 Room Air 06/19/17 18:31 18 98 Room Air 06/19/17 17:11 102.3 154 28 134/64 (87) 95 (Dio Patterson MD, R3) Result Diagram: 06/20/17 0353 06/20/17 1623 Imaging Last Impressions Chest X-Ray 06/19/17 1716 Signed Impressions: Service Date/Time: Monday, June 19, 2017 18:51 - CONCLUSION: No acute disease. Ld Bedoya MD Abdomen/Pelvis CT 06/19/17 0000 Signed Impressions: Service Date/Time: Monday, June 19, 2017 21:08 - CONCLUSION: No acute abnormality is seen. There is mild heterogeneity of the liver. Ld Bedoya MD Objective Remarks General: Lying in bed, no acute distress Skin: No rashes or lesions, normal skin turgor, skin is moist HEENT: Normocephalic, no nasal discharge, moist oropharynx, pharynx is normal Neck: Supple, no meningeal signs, no lymphadenopathy CV: RRR, no murmurs. Normal perfusion. No LE edema Lungs: CTAB, no wheezing Abdomen: Tender to palpation in the epigastric region, no guarding. bowel sounds present, soft, nondistended, no peritoneal signs Ext: No swelling, normal range of motion Neuro: Awake, alert, nonfocal Psych: Appropriate mood and affect (Dio Patterson MD, R3) A/P Assessment and Plan 51 year old female with a history of HIV disease presents with severe sepsis likely secondary to pyelonephritis. (Dio Patterson MD, R3) Attending Attestation EMR reviewed Patients hospital course discussed in detail with Dr Patterson Patient seen and examined Agree with contents of this note See Orders (Tone Newton MD) Problem List: (1) Severe sepsis ICD Codes: A41.9 - Sepsis, unspecified organism; R65.20 - Severe sepsis without septic shock Status: Acute Plan: Impression: Patient with WBC 18.4, tachycardia to 154bpm, T102.3F, BP 88/ 53, lactic acid 2. Abdominal and pelvic CT negative for acute process. UA with positive nitrite, large leukocyte esterase, 126 WBC, trace blood. Chest x-ray normal. Not concerning for meningitis on exam Blood cultures- + for gram - rods; pending Urine cultures- + for gram - rods; pending -Continue IV fluid hydration -s/p 3 L boluses in ED; MAP stable >65 -Continue to monitor BMP -Continue broad spectrum antibiotics -Vancomycin -Zosyn -Will consult ID for management due to coexisting HIV and bacteremia -Will check HIV markers (2) Pyelonephritis ICD Codes: N12 - Tubulo-interstitial nephritis, not specified as acute or chronic Status: Acute Plan: Meets criteria for complicated pyelonephritis given UA results indicating WBC, large leukocyte esterase, and positive nitrite in urine, high fevers, elevated white count, tachycardia, hypotension. Immunosuppression with history of HIV disease. - Continue Vancomycin and Zosyn for broad coverage (3) Epigastric abdominal pain ICD Codes: R10.13 - Epigastric pain Status: Acute Plan: Having epigastric abdominal pain for the last couple months associated with nausea and vomiting, stools normal. Differential is broad, including peptic ulcer disease, gastroenteritis, ischemic colitis, generalized colitis, c.diff, biliary tract disease, pancreatitis, inferior ND. Lipase is normal. AST and ALT are normal. ALP slightly high at 140. CT abdomen/pelvis shows no acute disease. Patient has not had screening colonoscopy EKG- sinus, normal EKG - Consult GI for chronic abdominal pain and nausea/vomiting and uncertain diagnosis -check Hemoccult - Pain management with Percocet 5-325 for mild pain, 10-325 for severe pain. - Zofran PRN for nausea/vomiting, bowel regimen PRN if constipated. - Continue ranitidine and Tums, which she was taking at home. - Full liquid diet, advance as tolerated (4) HIV (human immunodeficiency virus infection) ICD Codes: Z21 - Human immunodeficiency virus (HIV) infection Status: Chronic Plan: History of HIV, was controlled in the past, but inconsistent HAART use recently due to abdominal pain and vomiting. 11/2016 labs reportedly showed a CD4 273, CD8 273, CD4/8 ratio 1.0, and undetectable viral load. - Check CD4, CD8, and viral load - Resume HAART medications -Tivicay -Truvada - Will consult ID due to bacteremia and address outpatient HIV management (5) Acute kidney injury ICD Codes: N17.9 - Acute kidney failure, unspecified Status: Acute Plan: Acute kidney injury, likely prerenal from sepsis, dehydration. - Continue IV fluids - Avoid nephrotoxic agents - Renally dose medications (6) Rheumatoid arthritis ICD Codes: M06.9 - Rheumatoid arthritis, unspecified Status: Chronic Plan: Stable - Hold NSAIDs for ZAIN - See abdominal pain for pain regimen (7) No contraindication to deep vein thrombosis (DVT) prophylaxis ICD Codes: Z78.9 - Other specified health status Status: Acute Plan: Lovenox 40 mg daily, hold if hemoglobin dropping or concern for peptic ulcer disease (8) Nutrition, metabolism, and development symptoms ICD Codes: R63.8 - Other symptoms and signs concerning food and fluid intake Status: Acute Plan: Fluids: Received three 1 liter boluses in ED; Continue with maintenance fluids normal saline at 100 mls/hr Diet: Full liquid diet, advance as tolerated Electrolytes: Low potassium, replace and monitor. Continue IV fluids and monitor (Dio Patterson MD, R3) Remarks Reviewed labs with patient from her phone: 11/2016: HIV RNA 1 quant: not detected Absolute CD4 273, 38% helper T Absolute CD8 273, 38% CD8 Hepatitis panel negative UA- occult blood 3+ Lipid profile T cholesterol 123, HDL 43 (Dio Patterson MD, R3) Problem Qualifiers (1) Rheumatoid arthritis: Qualified Codes: M06.9 - Rheumatoid arthritis, unspecified Dio Patterson MD, R3 Jun 20, 2017 15:26 Tone Newton MD Jun 22, 2017 14:04
--- NOTE | 2017-06-20 16:10 | PD.CONS ---
HPI History of Present Illness This is a 51 year old female with HIV, RA who presented with fevers, abd pain, n /v, decreased appetite. She was found to have sepsis, pyelonephritis. She has been having epigastric pain for 5 days. THe pain radiates diffusely. SHe has n /v when her fever spikes. She had episode of similar in May and it resolved. SHe has lost 20 lbs in 2 months. Denies blood in emesis, blood in stool, tarry stool. She does use NSAIDs for her RA regularly, in lieu of immunomodulators d/t her HIV. Never had EGD or colonoscopy. (Vanesa Daniels) PFSH Past Medical History RA HIV HTN Past Surgical History Laparoscopic repair ectopic (Vanesa Daniels) Coded Allergies: promethazine (Unverified Adverse Reaction, Severe, extrapyramidal symptoms , 03/20/17) sts gives her the "jitters"/nervousness Family History unk, pt adopted Social History rare etoh no tobacco or illicit drug use (Vanesa Daniels) Review of Systems Constitutional: COMPLAINS OF: Fever Ears, nose, mouth, throat: DENIES: Hearing loss Respiratory: DENIES: Cough Cardiovascular: DENIES: Chest pain Gastrointestinal: COMPLAINS OF: Abdominal pain, Nausea, Vomiting, Heartburn, DENIES: Black stools, Bloody stools, Constipation, Diarrhea, Hematemesis Genitourinary: DENIES: Urinary incontinence Musculoskeletal: COMPLAINS OF: Joint pain (d/t RA) Integumentary: DENIES: Jaundice Hematologic/lymphatic: DENIES: Lymphadenopathy Neurologic: DENIES: Abnormal gait Psychiatric: DENIES: Confusion (Vanesa Daniels) GI Exam Vitals I&O Vital Signs Date Time Temp Pulse Resp B/P (MAP) Pulse Ox O2 Delivery O2 Flow Rate FiO2 06/20/17 12:00 98.9 79 18 95/51 (66) 98 06/20/17 09:55 06/20/17 09:40 98.6 90 18 89/55 (66) 99 Room Air 06/20/17 07:10 100.3 101 19 88/53 (65) 98 Room Air 06/20/17 06:25 98 21 06/20/17 06:00 84 16 87/56 (66) 96 Room Air 06/20/17 01:00 98.3 78 18 103/58 (73) 100 Room Air 06/19/17 22:10 77 18 88/53 (65) 98 Room Air 06/19/17 18:31 18 98 Room Air 06/19/17 17:11 102.3 154 28 134/64 (87) 95 Laboratory Test 06/19/17 18:00 06/19/17 21:30 06/20/17 03:53 White Blood Count 18.4 TH/MM3 14.2 TH/MM3 Red Blood Count 3.14 MIL/MM3 2.77 MIL/MM3 Hemoglobin 10.4 GM/DL 9.1 GM/DL Hematocrit 30.7 % 27.9 % Mean Corpuscular Volume 97.7 FL 100.8 FL Mean Corpuscular Hemoglobin 33.2 PG 33.0 PG Mean Corpuscular Hemoglobin Concent 34.0 % 32.7 % Red Cell Distribution Width 13.5 % 13.9 % Platelet Count 261 TH/MM3 226 TH/MM3 Mean Platelet Volume 7.8 FL 7.9 FL Neutrophils (%) (Auto) 89.8 % 89.2 % Lymphocytes (%) (Auto) 3.1 % 5.2 % Monocytes (%) (Auto) 7.1 % 5.5 % Eosinophils (%) (Auto) 0.0 % 0.1 % Basophils (%) (Auto) 0.0 % 0.0 % Neutrophils # (Auto) 16.5 TH/MM3 12.7 TH/MM3 Lymphocytes # (Auto) 0.6 TH/MM3 0.7 TH/MM3 Monocytes # (Auto) 1.3 TH/MM3 0.8 TH/MM3 Eosinophils # (Auto) 0.0 TH/MM3 0.0 TH/MM3 Basophils # (Auto) 0.0 TH/MM3 0.0 TH/MM3 CBC Comment DIFF FINAL DIFF FINAL Differential Comment Prothrombin Time 12.4 SEC Prothromb Time International Ratio 1.1 RATIO Activated Partial Thromboplast Time 33.5 SEC Blood Urea Nitrogen 18 MG/DL 21 MG/DL Creatinine 1.32 MG/DL 1.28 MG/DL Random Glucose 157 MG/DL 86 MG/DL Total Protein 8.0 GM/DL 6.8 GM/DL Albumin 2.5 GM/DL 2.0 GM/DL Calcium Level 8.2 MG/DL 7.6 MG/DL Alkaline Phosphatase 140 U/L 125 U/L Aspartate Amino Transf (AST/SGOT) 15 U/L 11 U/L Alanine Aminotransferase (ALT/SGPT) 17 U/L 12 U/L Total Bilirubin 1.3 MG/DL 1.0 MG/DL Sodium Level 131 MEQ/L 136 MEQ/L Potassium Level 2.9 MEQ/L 3.9 MEQ/L Chloride Level 99 MEQ/L 106 MEQ/L Carbon Dioxide Level 19.9 MEQ/L 21.0 MEQ/L Anion Gap 12 MEQ/L 9 MEQ/L Estimat Glomerular Filtration Rate 43 ML/MIN 44 ML/MIN Lactic Acid Level 2.0 mmol/L Lipase 54 U/L Urine Color YELLOW Urine Turbidity HAZY Urine pH 7.0 Urine Specific Gray 1.025 Urine Protein 100 mg/dL Urine Glucose (UA) NEG mg/dL Urine Ketones NEG mg/dL Urine Occult Blood MOD Urine Nitrite POS Urine Bilirubin NEG Urine Urobilinogen 2.0 MG/DL Urine Leukocyte Esterase LARGE Urine RBC 4 /hpf Urine WBC 126 /hpf Urine Squamous Epithelial Cells 12 /hpf Urine Transitional Epithelial Cells 2 /hpf Urine Amorphous Sediment RARE Urine Bacteria MANY /hpf Microscopic Urinalysis Comment CATH-CULTURE IND Date/Time Source Procedure Growth Status 06/19/17 18:09 Blood Peripheral Aerobic Blood Culture - Preliminary NO GROWTH IN 1 DAY Resulted 06/19/17 18:09 Anaerobic Blood Culture - Preliminary Gram Negative [place] Resulted 06/19/17 18:30 Nasal Washing Influenza Types A,B Antigen (WOODY) - Final NEGATIVE FOR FLU A AND B ANTIGEN.... Complete 06/19/17 21:30 Urine Catheterized Urine Urine Culture - Preliminary Gram Negative [place] Resulted Physical Examination HEENT: PERRL; normocephalic; atraumatic; no jaundice. CHEST: CTA CARDIAC: ReRR ABDOMEN: Soft, nondistended, RUQ and epigastric TTP; no hepatosplenomegaly; bowel sounds are present in all four quadrants. EXTREMITIES: No clubbing, cyanosis, or edema. SKIN: Normal; no rash; no jaundice. PIPE FITTER MAINTENANCE: No focal deficits; alert and oriented times three. (Vanesa Daniels) Assessment and Plan Plan ASSESSMENT - RUQ pain, n/v, weight loss - onset 5 d ago, with separate episode 1 m ago. 20 lbs weight loss in 2m. Never had EGD or colonoscopy will do both, r/o malignancy, PUD or gastritis. - HIV, pyelonephritis PLAN - EGD colonoscopy in AM - obtain consent - continue clears - NPO after midnight - GoLytely - 40mg PO protonix - further recs to follow THis pt seen by myself and Dr Miller and this note is written on his behalf (Vanesa Daniels) Physician Comments Patient seen and examined Agree with above Continue with current supportive care Monitor labs Plan for an EGD and a colonoscopy tomorrow (Arnel Miller MD) Vanesa Daniels Jun 20, 2017 16:10 Arnel Miller MD Jun 20, 2017 23:43
[2017-06-20] MEDS ORDERED: PEG (High)/E-LYTE SOLN 4000 ML BTL PO ONE (16:15)
[2017-06-20 17:15] LABS: BICARBONATE 19.7 MEQ/L (21.0-32.0); POTASSIUM 3.7 MEQ/L (3.5-5.1)
[2017-06-20] MEDS ORDERED: SODIUM CHLOR 0.9% 1000 ML INJ 1,000 ML IV ONE (17:30)
[2017-06-21] VITALS (7 sets, daily range): BP systolic 92–124; BP diastolic 53–64; PULSE 84–94; RESP 14–26; TEMP 98.2–99.8; O2SAT 94–99
[2017-06-21] MEDS: NS + KCL 20 MEQ INJ 1,000 ML IV SCH (00:30)
[2017-06-21] MEDS: PIPERACIL-TAZO 3.375 GM PREMIX 50 ML IV SCH ×2 (01:44→08:01)
[2017-06-21] MEDS: ACETAMINOPHEN 325 MG TAB PO PRN ×2 (01:46→22:13)
[2017-06-21 04:12] LABS: AUTOMATED NEUTROPHIL # 10.9 TH/MM3 (1.8-7.7); BASOPHIL % 0.1 % (0.0-2.0); EOSINOPHIL % 0.2 % (0.0-4.0); HEMATOCRIT 25.1 % (35.0-46.0); HEMO FLAGS DIFF FINAL; LYMPH % 6.3 % (9.0-44.0); LYMPHOCYTE # 0.8 TH/MM3 (1.0-4.8); MEAN CELL VOLUME 98.4 FL (80.0-100.0); MEAN CORPUSCULAR HGB CONC 33.6 % (32.0-36.0); MONO % 7.5 % (0.0-8.0); NEUT % 85.9 % (16.0-70.0); PLATELET COUNT 236 TH/MM3 (150-450); RED BLOOD COUNT 2.55 MIL/MM3 (4.00-5.30); WHITE BLOOD COUNT 12.7 TH/MM3 (4.0-11.0)
[2017-06-21 04:46] LABS: BICARBONATE 19.8 MEQ/L (21.0-32.0); CALCIUM-PROTEIN CORRECTED 7.8 MG/DL (8.5-10.1); POTASSIUM 3.3 MEQ/L (3.5-5.1); TOTAL BILIRUBIN ADULT 0.9 MG/DL (0.2-1.0)
[2017-06-21] MEDS: SODIUM CHLOR 0.9% 1000 ML INJ 1,000 ML IV SCH ×3 (05:07→22:15)
[2017-06-21] MEDS: FAMCICLOVIR 500 MG TAB PO SCH ×2 (09:00→17:01)
[2017-06-21] MEDS: DOCUSATE SODIUM 50 MG/SENNA 8.6 MG TAB PO SCH ×2 (09:00→20:14)
[2017-06-21] MEDS: DOLUTEGRAVIR SODIUM 50 MG TAB PO SCH ×2 (09:00→17:00)
[2017-06-21] MEDS: SODIUM CHLORIDE 0.9% FLUSH 10 ML FLUSH IV FLUSH SCH ×2 (09:00→20:14)
[2017-06-21] MEDS: FAMOTIDINE 20 MG TAB PO SCH ×3 (09:00→20:14)
[2017-06-21] MEDS: GABAPENTIN 300 MG CAP PO SCH ×3 (09:00→17:01)
[2017-06-21] MEDS: EMTRICITABINE/TENOFOVIR 200 MG/300 MG TAB PO SCH ×2 (09:00→17:01)
[2017-06-21] MEDS: PANTOPRAZOLE SOD 40 MG DELAYED RELEASE TAB PO SCH (09:00)
[2017-06-21] MEDS ORDERED: INFLUENZA VIRUS VACCINE (QUADRIVALENT) 0.5 ML SYR IM ONE (10:00)
[2017-06-21] MEDS ORDERED: PNEUMOCOCCAL POLYVALENT INJ 25 MCG/0.5 ML SYR IM ONE (10:00)
--- NOTE | 2017-06-21 11:05 | HHI.FPPN ---
Subjective Remarks Mrs. Spencer was afebrile (Tmax 99.8) with stable VS overnight. Patient reports that she feels well overall with no chest pain, shortness of breath, dysuria, or abnormal bowel movements. Patient continues to have abdominal pain. (Dio Patterson MD, R3) Objective Vitals Vital Signs Date Time Temp Pulse Resp B/P (MAP) Pulse Ox O2 Delivery O2 Flow Rate FiO2 06/21/17 04:00 98.6 86 16 92/54 (67) 95 06/21/17 00:00 98.6 89 16 100/56 (71) 95 06/20/17 20:00 98.9 101 16 116/57 (76) 98 06/20/17 19:45 97 06/20/17 16:00 99.2 100 16 110/54 (72) 98 06/20/17 12:00 98.9 79 18 95/51 (66) 98 I/O 06/20/17 06/20/17 06/20/17 06/21/17 06/21/17 06/21/17 07:00 15:00 23:00 07:00 15:00 23:00 Intake Total 1855 ml 1035 ml Balance 1855 ml 1035 ml Intake Oral 1500 ml 0 ml IV Total 355 ml 1035 ml # Voids 2 # Bowel Movements 6 (Dio Patterson MD, R3) Result Diagram: 06/21/17 0358 06/21/17 0358 Imaging Last Impressions Chest X-Ray 06/19/17 1716 Signed Impressions: Service Date/Time: Monday, June 19, 2017 18:51 - CONCLUSION: No acute disease. Ld Bedoya MD Abdomen/Pelvis CT 06/19/17 0000 Signed Impressions: Service Date/Time: Monday, June 19, 2017 21:08 - CONCLUSION: No acute abnormality is seen. There is mild heterogeneity of the liver. Ld Bedoya MD Objective Remarks General: Lying in bed, no acute distress Skin: No rashes or lesions, normal skin turgor, skin is moist CV: RRR, no murmurs. Normal perfusion. No LE edema Lungs: CTAB, no wheezing Abdomen: Mild diffuse tenderness in abdomen; no guarding. bowel sounds present, soft, nondistended, no peritoneal signs Ext: No swelling, normal range of motion Neuro: Awake, alert, nonfocal Psych: Appropriate mood and affect (Dio Patterson MD, R3) A/P Assessment and Plan 51 year old female with a history of HIV disease presents with severe sepsis likely secondary to pyelonephritis. (Dio Patterson MD, R3) Attending Attestation Patient seen and examined. Case reviewed and discussed with the resident team( DR Patterson). Agree with plan of care as discussed with me and documented in the resident note. (Tone Newton MD) Problem List: (1) Severe sepsis ICD Codes: A41.9 - Sepsis, unspecified organism; R65.20 - Severe sepsis without septic shock Status: Acute Plan: Impression: Patient with WBC 18.4, tachycardia to 154bpm, T102.3F, BP 88/ 53, lactic acid 2. Abdominal and pelvic CT negative for acute process. UA with positive nitrite, large leukocyte esterase, 126 WBC, trace blood. Chest x-ray normal. Not concerning for meningitis on exam Blood cultures- + for gram - rods; pending Urine cultures- + for E Coli; pansensitive -Continue IV fluid hydration -s/p 3 L boluses in ED; MAP stable >65 -Continue to monitor BMP -ID consulted for management due to coexisting HIV and bacteremia -Rocephin 2gm IV daily (2) Pyelonephritis ICD Codes: N12 - Tubulo-interstitial nephritis, not specified as acute or chronic Status: Acute Plan: Meets criteria for complicated pyelonephritis given UA results indicating WBC, large leukocyte esterase, and positive nitrite in urine, high fevers, elevated white count, tachycardia, hypotension. Immunosuppression with history of HIV disease. - Continue Vancomycin and Zosyn for broad coverage (3) Epigastric abdominal pain ICD Codes: R10.13 - Epigastric pain Status: Acute Plan: Having epigastric abdominal pain for the last couple months associated with nausea and vomiting, stools normal. Differential is broad, including peptic ulcer disease, gastroenteritis, ischemic colitis, generalized colitis, c.diff, biliary tract disease, pancreatitis, inferior NE. Lipase is normal. AST and ALT are normal. ALP slightly high at 140. CT abdomen/pelvis shows no acute disease. Patient has not had screening colonoscopy EKG- sinus, normal EKG - GI consulted for chronic abdominal pain and nausea/vomiting and uncertain diagnosis -EGD/Colonoscopy -Continue clear diet; colon prep -Continue Protonix 40mg daily -check Hemoccult - Pain management with Percocet 5-325 for mild pain, 10-325 for severe pain. - Zofran PRN for nausea/vomiting, bowel regimen PRN if constipated. - Continue ranitidine and Tumswhich she was taking at home. (4) HIV (human immunodeficiency virus infection) ICD Codes: Z21 - Human immunodeficiency virus (HIV) infection Status: Chronic Plan: History of HIV, was controlled in the past, but inconsistent HAART use recently due to abdominal pain and vomiting. 11/2016 labs: HIV RNA 1 quant: not detected Absolute CD4 273, 38% helper T Absolute CD8 273, 38% CD8 Hepatitis panel negative - Check CD4, CD8, and viral load - Continue HAART medications -Tivicay -Truvada - Will consult ID due to bacteremia and address outpatient HIV management (5) Acute kidney injury ICD Codes: N17.9 - Acute kidney failure, unspecified Status: Acute Plan: 06/21: Cr 1.07 (stable from 06/20) - Continue IV fluids - Avoid nephrotoxic agents - Renally dose medications Impression: Acute kidney injury, likely prerenal from sepsis, dehydration. (6) Rheumatoid arthritis ICD Codes: M06.9 - Rheumatoid arthritis, unspecified Status: Chronic Plan: Stable - Hold NSAIDs for ZAIN - See abdominal pain for pain regimen (7) No contraindication to deep vein thrombosis (DVT) prophylaxis ICD Codes: Z78.9 - Other specified health status Status: Acute Plan: Lovenox 40 mg daily, hold if hemoglobin dropping or concern for peptic ulcer disease (8) Nutrition, metabolism, and development symptoms ICD Codes: R63.8 - Other symptoms and signs concerning food and fluid intake Status: Acute Plan: Fluids: Received three 1 liter boluses in ED; Continue with maintenance fluids normal saline at 125 mls/hr Diet: Full liquid diet, advance as tolerated Electrolytes: Low potassium, replace and monitor. Continue IV fluids and monitor (Dio Patterson MD, R3) Problem Qualifiers (1) Rheumatoid arthritis: Qualified Codes: M06.9 - Rheumatoid arthritis, unspecified Dio Patterson MD, R3 Jun 21, 2017 11:05 Tone Newton MD Jun 22, 2017 14:12
--- NOTE | 2017-06-21 12:55 | HHI.PR ---
Addendum to Inpatient Note Addendum Reason: Additional Documentation Additional Information Patient in procedure. Ordered repeat blood cultures. E.coli in urine is zuleta susceptible. Blood E.coli susceptibility pending. Continue Rocephin IV for now change to q24hrs. DC IM Rocephin dose. Will attempt to see patient later today. If any change in clinical condition in the interim please call. Avis Garcia MD Jun 21, 2017 12:55
[2017-06-21] MEDS ORDERED: SIMETHICONE SUSP DROPS 40 MG/0.6 ML 30 ML BTL PO ONE (13:32)
--- NOTE | 2017-06-21 13:50 | PD.PROCEDR ---
GI Procedure REFERRING PHYSICIAN Dr. Newton PROCEDURE PERFORMED EGD with biopsy followed by colonoscopy INDICATION FOR PROCEDURE Abdominal pain, nausea vomiting, weight loss, history of HIV PROCEDURE: The procedure, risks and benefits were discussed with Ms. Spencer and informed consent was obtained. Anesthesia sedated her with Diprivan. She was placed in the left lateral decubitus position. EGD: The Pentax videoscope was introduced through the oropharynx and advanced to the second portion of the duodenum under direct visualization. Retroflexion was performed in the stomach. FINDINGS: The esophagus this appeared to be unremarkable and within normal limits Stomach there was patchy erythema in the antrum but no ulcerations or erosions no blood or bleeding the rest of the stomach was unremarkable antral biopsies were taken for further evaluation Duodenum this looked normal Colonoscopy: The Pentax videoscope was introduced through the rectum and advanced to cecum where the ileocecal valve and appendiceal orifice were identified. Retroflexion was performed in the rectum. Colonic prep was very good FINDINGS: Colonic withdrawal time greater than 6 minutes as the scope was slowly withdrawn colonic mucosa was carefully inspected this was noted to be unremarkable and within normal limits all the way through so as retroflexion and rectal examination these too were unremarkable ESTIMATED BLOOD LOSS: None SPECIMENS REMOVED: Antral biopsies COMPLICATIONS: None IMPRESSION: Gastritis Normal colonoscopy PLAN: Await biopsies Continue with current supportive care Monitor labs Arnel Miller MD Jun 21, 2017 13:50
[2017-06-21] MEDS ORDERED: PROPOFOL 200 MG/20 ML AMP ONE (14:00)
[2017-06-21] MEDS: cefTRIAXone INJ 2,000 MG in SODIUM CHLORIDE 0.9% INJ 100 ML IV SCH (15:11)
--- NOTE | 2017-06-21 16:25 | EKG ---
Date Performed: 06/20/2017 Time Performed: 14:36:30 PTAGE: 51 years EKG: Sinus rhythm NORMAL ECG PREVIOUS TRACING : 09/11/2014 16.14 Compared to prior tracing no significant change DOCTOR: Ros Becker Interpretating Date/Time 06/21/2017 16:23:58
[2017-06-21] MEDS: ENOXAPARIN SODIUM 40 MG/0.4 ML SYRINGE SQ SCH (22:15)
[2017-06-22] VITALS (7 sets, daily range): BP systolic 106–134; BP diastolic 52–83; PULSE 69–86; RESP 14–18; TEMP 98.3–100.4; O2SAT 94–99
[2017-06-22 05:41] LABS: HEMATOCRIT 27.7 % (35.0-46.0); MEAN CELL VOLUME 99.5 FL (80.0-100.0); MEAN CORPUSCULAR HGB CONC 34.2 % (32.0-36.0); PLATELET COUNT 265 TH/MM3 (150-450); RED BLOOD COUNT 2.79 MIL/MM3 (4.00-5.30); RED CELL DISTRIBUTION WIDTH 14.8 % (11.6-17.2); REVIEW FLAG FINAL; WHITE BLOOD COUNT 9.6 TH/MM3 (4.0-11.0)
[2017-06-22 06:09] LABS: BICARBONATE 18.9 MEQ/L (21.0-32.0); CALCIUM-PROTEIN CORRECTED 7.8 MG/DL (8.5-10.1); POTASSIUM 3.3 MEQ/L (3.5-5.1); TOTAL BILIRUBIN ADULT 0.3 MG/DL (0.2-1.0)
[2017-06-22] MEDS: NS + KCL 20 MEQ INJ 1,000 ML IV SCH (07:45)
[2017-06-22] MEDS: FAMCICLOVIR 500 MG TAB PO SCH (08:56)
[2017-06-22] MEDS: GABAPENTIN 300 MG CAP PO SCH ×3 (08:56→17:53)
[2017-06-22] MEDS: PANTOPRAZOLE SOD 40 MG DELAYED RELEASE TAB PO SCH (08:57)
[2017-06-22] MEDS: DOLUTEGRAVIR SODIUM 50 MG TAB PO SCH (08:57)
[2017-06-22] MEDS: EMTRICITABINE/TENOFOVIR 200 MG/300 MG TAB PO SCH (08:57)
[2017-06-22] MEDS: DOCUSATE SODIUM 50 MG/SENNA 8.6 MG TAB PO SCH ×2 (08:57→21:00)
[2017-06-22] MEDS: FAMOTIDINE 20 MG TAB PO SCH ×2 (08:57→22:05)
[2017-06-22] MEDS: SODIUM CHLORIDE 0.9% FLUSH 10 ML FLUSH IV FLUSH SCH ×2 (08:59→22:06)
[2017-06-22] MEDS ORDERED: POTASSIUM CHLORIDE 20 MEQ CONTROLLED RELEASE TAB PO ONE (11:00)
--- NOTE | 2017-06-22 11:58 | PD.ID.CON ---
History of Present Illness Service ID Consult Requested By residents/ Reason for Consult Evaluation and Mment of Sepsis and E.coli bacteremia. 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 Her PMHx is significant for HIV disease on HAART prescribed by a doctor in [place] and also she gets scripts from at [facility]. She reports to me she has not been compliant because of her Dads health. She reports that when he had good days I would take my medicine and when he did not I did not take medicines. She has reported to others that she is non compliant due to her GI symptoms. Patient has not followed with and does not wish to go back to him and will hopefully seek HIV care with another physician. She reports she was off meds for long periods and when she did start HAART she would miss many doses. Based on her history she is non compliant and not reliable historian either as she does not make eye contact when talking to me and also gives multiple versions of the same story in same visit and when questioned back and forth appears to be inconsistent and not reliable. Patient also has reported history of drug abuse and RN reports suspicious pills in a bottle shortly after my visit with her. Regarding her HIV disease her last labs were drawn in November and showed a CD4 273, CD8 273, CD4/8 ratio 1.0, and undetectable viral load per resident notes. Not sure if she is getting meds via resident clinic as well in addition to her two other sources of HAART medication supply. She reports no history of opportunistic infections and states that her disease has been well controlled. With this back ground patient presents to the ED with epigastric abdominal pain. [facility]. The pain has been present for the past 2 to 3 weeks and is feeling worse today. She has decreased appetite and vomits about 4 times a day. Vomit is non-bilious and non-bloody. Her bowel movements have been normal, with well-formed stools that are non-bloody and without mucous. Her PO intake is down and she is eating mostly soups. She felt dehydrated on admission but now feels a lot better after receiving IV fluids. She also has been having fevers and chills. She had a similar episode in May that she says self-resolved. In the ED she was tachycardic with BP down to 88/53, HR 154, and temperature up to 102.3. She received three boluses of one liter normal saline in the ED and did not require pressors. CT of the abdomen and pelvis done in the ED shows no acute abnormality. She was also started on vancomycin and Zosyn. Workup thus far has revealed likely pyelonephritis, with positive nitrites and large leukocyte esterase. She reports no dysuria, frequent urination, or flank pain. She reports no blood in the urine. ID was consulted for evaluation and Mment of Sepsis and E.coli bacteremia. Past Family Social History Allergies: Coded Allergies: promethazine (Unverified Adverse Reaction, Severe, extrapyramidal symptoms , 03/20/17) sts gives her the "jitters"/nervousness Past Medical History Ectopic age 39 ? Rheumatoid arthritis since 2003: takes Tylenol and Motrin ? Sjogren's Syndrome HIV disease: sees Dr. Mariano, infectious disease HAART: not taking regularly last couple months due to stomach problems, was compliant before that. Most recent labs were drawn in November and showed a CD4 273, CD8 273, CD4/8 ratio 1.0, and undetectable viral load Hypertension: was taking taking amlodipine 5 mg daily, but not compliant Infectious disease doctor Montserrat Does not have heel pricker: was supposed to Dr. Mccoy but never did Past Surgical History Ectopic Reported Medications Reported Meds & Active Scripts Active Gabapentin 300 Mg Cap 300 Mg PO TID Take one 300mg tab on day 1 Then take 300mg tab twice/day on day 2 then take 300mg tab three times/day thereafter [place] (Hydrocodone-Acetaminophen) 5-325 mg Tab 1 Tab PO Q4H PRN Amlodipine (Amlodipine Besylate) 5 Mg Tab 5 Mg PO DAILY Reported Famciclovir 500 Mg Tab 500 Mg PO DAILY Tivicay (Dolutegravir Sodium) 50 Mg Tab 50 Mg PO DAILY Truvada (Emtricitabine-Tenofovir Disoproxil Fumarate) 200-300 Mg Tab 1 Tab PO DAILY Active Ordered Medications Current Medications Medications (Trade) Dose Ordered Sig/Vance Route Start Time Stop Time Status Last Admin (NS Flush) 2 ml UNSCH PRN IV FLUSH 06/19/17 23:15 (NS Flush) 2 ml BID IV FLUSH 06/20/17 09:00 06/20/17 09:37 (Tylenol) 650 mg Q4H PRN PO 06/19/17 23:15 06/21/17 22:13 (Zofran Inj) 4 mg Q6H PRN IVP 06/19/17 23:15 06/21/17 07:52 (Lovenox Inj) 40 mg Q24H SQ 06/19/17 23:15 06/21/17 22:15 (Narcan Inj) 0.4 mg UNSCH PRN IV PUSH 06/19/17 23:15 (Truvada 200-300 Mg) 1 tab DAILY PO 06/20/17 09:00 06/22/17 08:57 (Famvir) 500 mg DAILY PO 06/20/17 09:00 06/22/17 08:56 (Neurontin) 300 mg TID PO 06/20/17 09:00 06/22/17 08:56 (Narcan Inj) 0.4 mg UNSCH PRN IV PUSH 06/20/17 05:00 (Nohemi-Colace) 1 tab BID PO 06/20/17 09:00 06/22/17 08:57 (Milk Of Magnesia Liq) 30 ml Q12H PRN PO 06/20/17 05:00 (Senokot) 17.2 mg Q12H PRN PO 06/20/17 05:00 (Dulcolax Supp) 10 mg DAILY PRN RECTAL 06/20/17 05:00 (Lactulose Liq) 30 ml DAILY PRN PO 06/20/17 05:00 (Pepcid) 20 mg Q12HR PO 06/20/17 05:15 06/22/17 08:57 (Protonix) 40 mg DAILY PO 06/21/17 09:00 06/22/17 08:57 Ceftriaxone Sodium 2000 mg/ Sodium Chloride 100 ml @ 200 mls/hr Q24H IV 06/21/17 14:00 06/21/17 15:11 Family History reviewed and NC to current ID problems Social History Lives with boyfriend and mother in law, and boyfriend's 7 year old daughter Was going back and forth to [place] to take care of ailing father, recently put on hospice 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 Admits to drug abuse. Physical Exam Vital Signs Vital Signs Date Time Temp Pulse Resp B/P (MAP) Pulse Ox O2 Delivery O2 Flow Rate FiO2 06/22/17 04:00 100.4 84 16 106/52 (70) 94 06/22/17 00:00 100.4 86 16 108/54 (72) 97 06/21/17 20:19 99 21 06/21/17 20:00 98.8 84 14 101/55 (70) 97 06/21/17 16:05 98.2 88 18 124/64 (84) 98 06/21/17 13:53 98.0 79 16 110/66 (81) 96 06/21/17 12:20 98.4 94 18 97/58 (71) 97 Physical Exam GENERAL: This is a well-nourished, well-developed patient, in no apparent distress. SKIN: No rashes, ecchymoses or lesions. Cool and dry. HEAD: Atraumatic. Normocephalic. No temporal or scalp tenderness. EYES: Pupils equal round and reactive. Extraocular motions intact. No scleral icterus. No injection or drainage. ENT: Nose without bleeding, purulent drainage or septal hematoma. Throat without erythema, tonsillar hypertrophy or exudate. Uvula midline. Airway patent. NECK: Trachea midline.Supple, nontender, no meningeal signs. CARDIOVASCULAR: Regular rate and rhythm without murmurs, gallops, or rubs. RESPIRATORY: Clear to auscultation. Breath sounds equal bilaterally. No wheezes , rales, or rhonchi. GASTROINTESTINAL: Abdomen soft, non-tender, nondistended. MUSCULOSKELETAL: Extremities without clubbing, cyanosis, or edema. No joint tenderness, effusion, or edema noted. No calf tenderness. Negative Homans sign bilaterally. NEUROLOGICAL: Awake and alert. Cranial nerves II through XII intact. Motor and sensory grossly within normal limits. Five out of 5 muscle strength in all muscle groups. Normal speech. Psych cooperative IV line sites with no e.o infection. Laboratory Laboratory Tests Test 06/22/17 05:28 White Blood Count 9.6 Red Blood Count 2.79 Hemoglobin 9.5 Hematocrit 27.7 Mean Corpuscular Volume 99.5 Mean Corpuscular Hemoglobin 34.0 Mean Corpuscular Hemoglobin Concent 34.2 Red Cell Distribution Width 14.8 Platelet Count 265 Mean Platelet Volume 7.9 Blood Urea Nitrogen 9 Creatinine 0.97 Random Glucose 84 Total Protein 6.2 Albumin 1.7 Calcium Level 7.3 Alkaline Phosphatase 158 Aspartate Amino Transf (AST/SGOT) 18 Alanine Aminotransferase (ALT/SGPT) 14 Total Bilirubin 0.3 Sodium Level 139 Potassium Level 3.3 Chloride Level 112 Carbon Dioxide Level 18.9 Anion Gap 8 Estimat Glomerular Filtration Rate 61 Protein Corrected Calcium 7.8 Date/Time Source Procedure Growth Status 06/21/17 16:35 Blood Peripheral Aerobic Blood Culture - Preliminary NO GROWTH IN 1 DAY Resulted 06/21/17 16:35 Blood Peripheral Anaerobic Blood Culture - Preliminary NO GROWTH IN 1 DAY Resulted 06/19/17 18:30 Nasal Washing Influenza Types A,B Antigen (WOODY) - Final NEGATIVE FOR FLU A AND B ANTIGEN.... Complete 06/19/17 21:30 Urine Catheterized Urine Urine Culture - Final Escherichia Coli Complete Result Diagram: 06/22/17 0528 06/22/17 0528 Imaging Last Impressions Chest X-Ray 06/19/17 1716 Signed Impressions: Service Date/Time: Monday, June 19, 2017 18:51 - CONCLUSION: No acute disease. Ld Bedoya MD Abdomen/Pelvis CT 06/19/17 0000 Signed Impressions: Service Date/Time: Monday, June 19, 2017 21:08 - CONCLUSION: No acute abnormality is seen. There is mild heterogeneity of the liver. Ld Bedoya MD Assessment and Plan Assessment and Plan Sepsis E.coli bacteremia E.coli UTI vs translocation. Patient did not have any UTI symptoms. HIV on HAART inconsistently. Recs DC HAART. At this time given her off and on compliance with her meds and skipping doses high likelihood of resistant HIV strains. I would recommend pill count as outpatient if she is ever restarted on HAART in future. At present time recommend stopping HAART meds and getting a genotype as OUTpatient once she makes an effort and schedules and keeps her outpatient appointment. Side effects of medications that she may be resistant to at this point given her compliance history is a concern. Considering the risk benefit ratio I recommend not starting HAART unless seen by ID/HIV doctor in clinic and keeping appts to demonstrate compliance with ID recs, new genotype off meds to determine best regimen for her. I would recommend her PCP not give her any refills as this can cause confusion about compliance and pill counts. I would also recommend no refills on discharge or on ED visits. HIV is a chronic condition like HTN and she should get all her refills only from her ID doctors ca for this young lady who is not reliable and not compliant. She needs to get her blood work before her ID doctor visits and get her refills called in sooner. She needs to be compliant with her schedule of follow up visits. I provided names of several HIV medicine practicing physicians like Dr.Reba Ayala([facility]) and ([facility]), ([place]) Continue Ceftriaxone IV Follow cultures till negative 72 hrs to r/o endovascular infection related persistent bacteremia. No urinary symptoms. No other source of E.coli. GI issues not significant enough to cause bacteremia. Suspect IVDA. Asked RN to check her belongings and have all visitors checked in at hotel front office manager. RN called me later to notify me a bottle with no label and several pills were found in her belongings. A UDS was verbally ordered. Check 2D ECHO Follow clinically. Avis Garcia MD Jun 22, 2017 11:58
--- NOTE | 2017-06-22 14:17 | HHI.FPPN ---
Subjective Remarks Mrs. Spencer was febrile to 100.4 F overnight; patient had otherwise stable vital signs with lowest MAP of 70. Patient does not report complaints today; she has continued mild abdominal pain and reports continued pain from her rheumatoid arthritis but otherwise denies back pain or dysuria. No chest pain, shortness of breath, nausea/vomiting, or abnormal bowel movements. Objective Vitals Vital Signs Date Time Temp Pulse Resp B/P (MAP) Pulse Ox O2 Delivery O2 Flow Rate FiO2 06/22/17 12:00 98.3 75 14 111/64 (80) 06/22/17 08:00 99.5 78 16 134/74 (94) 06/22/17 04:00 100.4 84 16 106/52 (70) 94 06/22/17 00:00 100.4 86 16 108/54 (72) 97 06/21/17 20:19 99 21 06/21/17 20:00 98.8 84 14 101/55 (70) 97 06/21/17 16:05 98.2 88 18 124/64 (84) 98 I/O 06/21/17 06/21/17 06/21/17 06/22/17 06/22/17 06/22/17 07:00 15:00 23:00 07:00 15:00 23:00 Intake Total 1035 ml 200 ml 1490 ml 360 ml Balance 1035 ml 200 ml 1490 ml 360 ml Intake Oral 0 ml 640 ml 360 ml IV Total 1035 ml 850 ml Other 200 ml # Voids 4 2 # Bowel Movements 5 Result Diagram: 06/22/17 0528 06/22/17 0528 Imaging Last Impressions Chest X-Ray 06/19/17 1716 Signed Impressions: Service Date/Time: Monday, June 19, 2017 18:51 - CONCLUSION: No acute disease. Ld Bedoya MD Abdomen/Pelvis CT 06/19/17 0000 Signed Impressions: Service Date/Time: Monday, June 19, 2017 21:08 - CONCLUSION: No acute abnormality is seen. There is mild heterogeneity of the liver. Ld Bedoya MD Objective Remarks General: No acute distress Skin: No rashes or lesions, normal skin turgor, skin is moist CV: RRR, no murmurs. Normal perfusion. No LE edema Lungs: CTAB, no wheezing Abdomen: Mild diffuse tenderness in abdomen; no guarding. Bowel sounds present, soft, nondistended, no peritoneal signs Ext: No swelling, normal range of motion Neuro: Awake, alert, nonfocal Psych: Appropriate mood and affect A/P Assessment and Plan 51 year old female with a history of HIV disease presents with fever: Problem List: (1) Sepsis ICD Codes: A41.9 - Sepsis, unspecified organism Plan: -Will hold IV fluid hydration as eating normally with stable MAP -s/p 4 L boluses-> maintenance NS at 125ml/hr -Continue to monitor BMP -ID consulted for management due to coexisting HIV and bacteremia Impression: UTI vs translocation -Rocephin 2gm IV daily -2 D echo ordered -D/C HAART -Follow cultures till negative x72 hrs to r/o endovascular infection Impression: Patient with WBC 18.4, tachycardia to 154bpm, T102.3F, BP 88/53, lactic acid 2. Abdominal and pelvic CT negative for acute process. UA with positive nitrite, large leukocyte esterase, 126 WBC, trace blood. Chest x-ray normal. Not concerning for meningitis on exam Blood cultures- + for E Coli; pansensitive Urine cultures- + for E Coli; pansensitive (2) Epigastric abdominal pain ICD Codes: R10.13 - Epigastric pain Status: Acute Plan: Having epigastric abdominal pain for the last couple months associated with nausea and vomiting, stools normal. Differential is broad, including peptic ulcer disease, gastroenteritis, ischemic colitis, generalized colitis, c.diff, biliary tract disease, pancreatitis, inferior MO. Lipase is normal. AST and ALT are normal. ALP slightly high at 140. CT abdomen/pelvis shows no acute disease. Patient has not had screening colonoscopy EKG- sinus, normal EKG - GI consulted for chronic abdominal pain and nausea/vomiting and uncertain diagnosis -EGD/Colonoscopy 06/21: Gastritis; normal colonoscopy -Biopsies obtained/pending -Continue Pantoprazole 40mg daily - Pain management with Percocet 5-325 for mild pain, 10-325 for severe pain. - Zofran PRN for nausea/vomiting, bowel regimen PRN if constipated. - Continue ranitidine and Tums which she was taking at home. (3) HIV (human immunodeficiency virus infection) ICD Codes: Z21 - Human immunodeficiency virus (HIV) infection Status: Chronic Plan: History of HIV, was controlled in the past, but inconsistent HAART use recently due to abdominal pain and vomiting. 11/2016 labs: HIV RNA 1 quant: not detected Absolute CD4 273, 38% helper T Absolute CD8 273, 38% CD8 Hepatitis panel negative - Check CD4, CD8, and viral load - DC HAART medications per ID -Will try to assist with establishing outpatient HIV management (4) Acute kidney injury ICD Codes: N17.9 - Acute kidney failure, unspecified Status: Acute Plan: 06/21: Cr 1.07 (stable from 06/20) - Continue IV fluids - Avoid nephrotoxic agents - Renally dose medications Impression: Acute kidney injury, likely prerenal from sepsis, dehydration. (5) Rheumatoid arthritis ICD Codes: M06.9 - Rheumatoid arthritis, unspecified Status: Chronic Plan: Impression: Chronic rheumatoid arthritis; patient reports taking excess Ibuprofen at home -Will start Celebrex prior discharge since gastritis seemed mild on endoscopy; if abdominal pains worsen will plan to discontinue (6) No contraindication to deep vein thrombosis (DVT) prophylaxis ICD Codes: Z78.9 - Other specified health status Status: Acute Plan: Lovenox 40 mg daily (7) Nutrition, metabolism, and development symptoms ICD Codes: R63.8 - Other symptoms and signs concerning food and fluid intake Status: Acute Plan: Fluids: Received 4 liter boluses; maintenance fluids normal saline at 125 mls/hr -Will discontinue Diet: Regular diet Electrolytes: Low potassium, replace and monitor Problem Qualifiers (1) Rheumatoid arthritis: Qualified Codes: M06.9 - Rheumatoid arthritis, unspecified Dio Patterson MD, R3 Jun 22, 2017 14:16
[2017-06-22] MEDS: cefTRIAXone INJ 2,000 MG in SODIUM CHLORIDE 0.9% INJ 100 ML IV SCH (14:26)
--- NOTE | 2017-06-22 14:40 | HHI.GIFU ---
Subjective Remarks Resting in bed, napping. Some nausea and abd discomfort in am but improved with eating. No vomiting. (Vanesa Daniels) Objective Vitals I&O Vital Signs Date Time Temp Pulse Resp B/P (MAP) Pulse Ox O2 Delivery O2 Flow Rate FiO2 06/22/17 12:00 98.3 75 14 111/64 (80) 06/22/17 08:00 99.5 78 16 134/74 (94) 06/22/17 04:00 100.4 84 16 106/52 (70) 94 06/22/17 00:00 100.4 86 16 108/54 (72) 97 06/21/17 20:19 99 21 06/21/17 20:00 98.8 84 14 101/55 (70) 97 06/21/17 16:05 98.2 88 18 124/64 (84) 98 I/O 06/21/17 06/21/17 06/21/17 06/22/17 06/22/17 06/22/17 07:00 15:00 23:00 07:00 15:00 23:00 Intake Total 1035 ml 200 ml 1490 ml 360 ml Balance 1035 ml 200 ml 1490 ml 360 ml Intake Oral 0 ml 640 ml 360 ml IV Total 1035 ml 850 ml Other 200 ml # Voids 4 2 # Bowel Movements 5 Laboratory Laboratory Tests Test 06/22/17 05:28 White Blood Count 9.6 Red Blood Count 2.79 Hemoglobin 9.5 Hematocrit 27.7 Mean Corpuscular Volume 99.5 Mean Corpuscular Hemoglobin 34.0 Mean Corpuscular Hemoglobin Concent 34.2 Red Cell Distribution Width 14.8 Platelet Count 265 Mean Platelet Volume 7.9 Blood Urea Nitrogen 9 Creatinine 0.97 Random Glucose 84 Total Protein 6.2 Albumin 1.7 Calcium Level 7.3 Alkaline Phosphatase 158 Aspartate Amino Transf (AST/SGOT) 18 Alanine Aminotransferase (ALT/SGPT) 14 Total Bilirubin 0.3 Sodium Level 139 Potassium Level 3.3 Chloride Level 112 Carbon Dioxide Level 18.9 Anion Gap 8 Estimat Glomerular Filtration Rate 61 Protein Corrected Calcium 7.8 Date/Time Source Procedure Growth Status 06/21/17 16:35 Blood Peripheral Aerobic Blood Culture - Preliminary NO GROWTH IN 1 DAY Resulted 06/21/17 16:35 Blood Peripheral Anaerobic Blood Culture - Preliminary NO GROWTH IN 1 DAY Resulted 06/19/17 18:30 Nasal Washing Influenza Types A,B Antigen (WOODY) - Final NEGATIVE FOR FLU A AND B ANTIGEN.... Complete 06/19/17 21:30 Urine Catheterized Urine Urine Culture - Final Escherichia Coli Complete Physical Exam HEENT: PERRL; normocephalic; atraumatic; no jaundice. CHEST: CTA CARDIAC: RRR ABDOMEN: Soft, nondistended, nontender; no hepatosplenomegaly; bowel sounds are present in all four quadrants. EXTREMITIES: No clubbing, cyanosis, or edema. SKIN: Normal; no rash; no jaundice. F[employer] ST[employer] P[employer] DEVELOPER: No focal deficits; alert and oriented times three. (Vanesa Daniels) Assessment and Plan Plan ASSESSMENT - RUQ pain, n/v, weight loss - onset 5 d ago, with separate episode 1 m ago. 20 lbs weight loss in 2m. Frequent NSAID use. s/p EGD/colonoscopy 06/21/17, normal colonoscopy, mild gastritis found on EGD. n/v seems improved, no vomiting today, mild nausea in am improved after eating - isolated elevation ALP - unclear significance - HIV, pyelonephritis ID following PLAN - await pathology - continue protonix - supportive care THis pt seen by myself and Dr Miller and this note is written on his behalf (Vanesa Daniels) Physician Comments Patient seen and examined Agree with above Continue with current supportive care Monitor labs Pathology unremarkable Alkaline phosphatase elevation is of little significance and probably multifactorial Not much to add from a GI perspective We will sign off (Arnel Miller MD) Vanesa Daniels Jun 22, 2017 14:40 Arnel Miller MD Jun 22, 2017 20:03
[2017-06-22] MEDS: CELECOXIB 100 MG CAP PO SCH ×2 (18:33→21:00)
[2017-06-22] MEDS ORDERED: CELECOXIB 100 MG CAP PO SCH (21:00)
[2017-06-22] MEDS: ENOXAPARIN SODIUM 40 MG/0.4 ML SYRINGE SQ SCH (22:59)
[2017-06-23] VITALS (9 sets, daily range): BP systolic 121–144; BP diastolic 69–84; PULSE 61–88; RESP 16–18; TEMP 96.8–99.4; O2SAT 96–99
[2017-06-23] MEDS: ACETAMINOPHEN 325 MG TAB PO PRN (02:45)
[2017-06-23 07:48] LABS: AUTOMATED NEUTROPHIL # 3.4 TH/MM3 (1.8-7.7); BASOPHIL % 0.5 % (0.0-2.0); EOSINOPHIL # 0.1 TH/MM3 (0-0.4); EOSINOPHIL % 1.2 % (0.0-4.0); HEMATOCRIT 27.6 % (35.0-46.0); HEMO FLAGS DIFF FINAL; LYMPH % 23.5 % (9.0-44.0); LYMPHOCYTE # 1.3 TH/MM3 (1.0-4.8); MEAN CELL VOLUME 97.7 FL (80.0-100.0); MEAN CORPUSCULAR HEMOGLOBIN 33.4 PG (27.0-34.0); MEAN CORPUSCULAR HGB CONC 34.2 % (32.0-36.0); MONO % 13.6 % (0.0-8.0); NEUT % 61.2 % (16.0-70.0); PLATELET COUNT 255 TH/MM3 (150-450); RED BLOOD COUNT 2.83 MIL/MM3 (4.00-5.30); RED CELL DISTRIBUTION WIDTH 14.7 % (11.6-17.2); WHITE BLOOD COUNT 5.5 TH/MM3 (4.0-11.0)
[2017-06-23 07:51] LABS: CD 19 PERCENT 11 % (6-29); CD3 ABSOLUTE 573 (840-3060); CD4/CD8 RATIO 0.5 (0.86-5.00); CD8 ABSOLUTE 358 (180-1170); LYMPHOCYTES, ABSOLUTE 676 (850-3900)
[2017-06-23 08:05] LABS: BICARBONATE 19.8 MEQ/L (21.0-32.0); POTASSIUM 3.2 MEQ/L (3.5-5.1)
[2017-06-23] MEDS: DOCUSATE SODIUM 50 MG/SENNA 8.6 MG TAB PO SCH ×2 (09:00→20:01)
[2017-06-23] MEDS: FAMOTIDINE 20 MG TAB PO SCH ×2 (10:28→20:01)
[2017-06-23] MEDS: ACETAMINOPHEN/HYDROcodone 325 MG/5 MG TAB PO PRN ×2 (10:28→20:01)
[2017-06-23] MEDS: PANTOPRAZOLE SOD 40 MG DELAYED RELEASE TAB PO SCH (10:29)
[2017-06-23] MEDS: GABAPENTIN 300 MG CAP PO SCH ×3 (10:29→18:25)
[2017-06-23] MEDS: CELECOXIB 100 MG CAP PO SCH ×2 (10:29→20:01)
[2017-06-23] MEDS: SODIUM CHLORIDE 0.9% FLUSH 10 ML FLUSH IV FLUSH SCH ×2 (10:30→20:01)
--- NOTE | 2017-06-23 12:43 | HHI.FPPN ---
Subjective Remarks Mrs. Spencer was afebrile with stable vital signs overnight. Per discussion with nursing staff: patient had episode of agitation when her belongings were searched for possible illicit drugs. Empty bags were found but no illicit medications found; suspicion existed that patient disposed of possible elicit substances. Patient subsequently complained of pain her abdomen. Per patient: patient reported frustration regarding accusation of illicit drugs ; patient states that she took illegal substances years prior but has not previously used IV drugs. Patient reports significant abdominal pain. Patient states that Celebrex has resolved her joint pain at this time. Patient also reports diarrhea; patient has again to have green increasing frequency after her colonoscopy. Patient does not report history of C. difficile. Patient does not report chest pain, shortness of breath, or urinary symptoms. Objective Vitals Vital Signs Date Time Temp Pulse Resp B/P (MAP) Pulse Ox O2 Delivery O2 Flow Rate FiO2 06/23/17 07:58 96.8 62 18 142/72 (95) 97 06/23/17 04:16 98 06/23/17 04:00 99.3 72 16 123/75 (91) 97 06/23/17 00:00 99.4 70 17 144/69 (94) 98 06/22/17 21:46 72 06/22/17 20:00 99.0 69 18 120/76 (91) 97 06/22/17 16:49 98.3 73 17 127/83 (98) 99 I/O 06/22/17 06/22/17 06/22/17 06/23/17 06/23/17 06/23/17 07:00 15:00 23:00 07:00 15:00 23:00 Intake Total 360 ml 720 ml 360 ml Balance 360 ml 720 ml 360 ml Intake Oral 360 ml 720 ml 360 ml # Voids 2 2 2 Result Diagram: 06/23/17 0720 06/23/17 0720 Imaging Last Impressions Chest X-Ray 06/19/17 1716 Signed Impressions: Service Date/Time: Monday, June 19, 2017 18:51 - CONCLUSION: No acute disease. Ld Bedoya MD Abdomen/Pelvis CT 06/19/17 0000 Signed Impressions: Service Date/Time: Monday, June 19, 2017 21:08 - CONCLUSION: No acute abnormality is seen. There is mild heterogeneity of the liver. Ld Bedoya MD Objective Remarks General: No acute distress Skin: No rashes or lesions, normal skin turgor, skin is moist CV: RRR, no murmurs. Normal perfusion. No LE edema Lungs: CTAB, no wheezing Abdomen: Full abdominal exam deferred due to patient pain and recent examination by Dr. Newton; tenderness to palpation but no suggestion of peritoneal signs or surgical abdomen. Ext: No swelling, normal range of motion Neuro: Awake, alert, nonfocal Psych: Appropriate mood and affect A/P Assessment and Plan Mrs. Spencer is a 51 year old female with a history of HIV: Problem List: (1) Sepsis ICD Codes: A41.9 - Sepsis, unspecified organism Status: Acute Plan: -Will hold IV fluid hydration as eating normally with stable MAP -s/p 4 L boluses-> maintenance NS at 125ml/hr -Continue to monitor BMP -ID consulted for management due to coexisting HIV and bacteremia Impression: UTI vs translocation. IVDU suspected -Rocephin 2gm IV daily -2 D echo ordered -D/C HAART -Follow cultures till negative x72 hrs to r/o endovascular infection -Will check UDA Impression: Patient with WBC 18.4, tachycardia to 154bpm, T102.3F, BP 88/53, lactic acid 2. Abdominal and pelvic CT negative for acute process. UA with positive nitrite, large leukocyte esterase, 126 WBC, trace blood. Chest x-ray normal. Not concerning for meningitis on exam Blood cultures- + for E Coli; pansensitive Urine cultures- + for E Coli; pansensitive (2) HIV (human immunodeficiency virus infection) ICD Codes: Z21 - Human immunodeficiency virus (HIV) infection Status: Chronic Plan: -ID consulted: -Recommendation for stopping HAART and getting outpatient Genotype after patient makes effort and keeps appointment due to concerns about compliance -Patient provided with names for HIV practitioners (Dr. Ayala, Dr. Patton, Dr. Jackson) Impression: History of HIV, was controlled in the past, but inconsistent HAART use recently due to abdominal pain and vomiting. 11/2016 labs: HIV RNA 1 quant: not detected Absolute CD4 273, 38% helper T Absolute CD8 273, 38% CD8 Hepatitis panel negative (3) GI symptoms ICD Codes: R19.8 - Other specified symptoms and signs involving the digestive system and abdomen Status: Acute Plan: 06/23: reported worsening diarrhea with greenish watery BM - GI consulted for chronic abdominal pain and nausea/vomiting and uncertain diagnosis -EGD/Colonoscopy 06/21: Gastritis; normal colonoscopy -Biopsies obtained/pending -Continue Pantoprazole 40mg daily - Pain management with Lortab - Zofran PRN for nausea/vomiting, bowel regimen PRN if constipated. - Continue ranitidine and Tums which she was taking at home. -Will check C diff for diarrhea Impression: ~2mo epigastric abdominal pain associated with nausea and vomiting. ~20 lb weight loss. Frequent NSAID use Lipase is normal. AST and ALT are normal. ALP slightly high at 140. CT abdomen/pelvis w/p acute disease EKG- sinus, normal EKG (4) Rheumatoid arthritis ICD Codes: M06.9 - Rheumatoid arthritis, unspecified Status: Chronic Plan: 06/23: Improved wrist/finger joint pain after starting Celebrex -Continue Celebrex 100mg BID since gastritis seemed mild on endoscopy; if abdominal pains worsen will plan to discontinue Impression: Chronic rheumatoid arthritis; patient reports taking excess Ibuprofen at home (5) Acute kidney injury ICD Codes: N17.9 - Acute kidney failure, unspecified Status: Resolved Plan: 06/21: Cr 0.88 - Continue IV fluids - Avoid nephrotoxic agents - Renally dose medications Impression: Acute kidney injury (Cr 1.32 on admission), likely prerenal from sepsis, dehydration. (6) No contraindication to deep vein thrombosis (DVT) prophylaxis ICD Codes: Z78.9 - Other specified health status Status: Acute Plan: Lovenox 40 mg daily (7) Nutrition, metabolism, and development symptoms ICD Codes: R63.8 - Other symptoms and signs concerning food and fluid intake Status: Acute Plan: Fluids: Received 4 liter boluses; maintenance fluids normal saline at 125 mls/hr -Discontinued Diet: Regular diet Electrolytes: Low potassium, replace and monitor Problem Qualifiers (1) Sepsis: Qualified Codes: A41.51 - Sepsis due to Escherichia coli [e. coli] (2) Rheumatoid arthritis: Qualified Codes: M06.9 - Rheumatoid arthritis, unspecified Dio Patterson MD, R3 Jun 23, 2017 12:43
[2017-06-23] MEDS: DICYCLOMINE HCL 10 MG CAP PO SCH ×3 (13:51→20:01)
[2017-06-23] MEDS: cefTRIAXone INJ 2,000 MG in SODIUM CHLORIDE 0.9% INJ 100 ML IV SCH (14:06)
[2017-06-23] MEDS: ENOXAPARIN SODIUM 40 MG/0.4 ML SYRINGE SQ SCH (22:57)
[2017-06-24] MEDS: ACETAMINOPHEN/HYDROcodone 325 MG/5 MG TAB PO PRN ×2 (04:54→12:13)
[2017-06-24 07:57] VITALS: BP 142/82; PULSE 61; RESP 18; TEMP 97.7; O2SAT 95
[2017-06-24 08:01] LABS: AUTOMATED NEUTROPHIL # 2.5 TH/MM3 (1.8-7.7); BASOPHIL % 0.5 % (0.0-2.0); EOSINOPHIL # 0.1 TH/MM3 (0-0.4); EOSINOPHIL % 1.9 % (0.0-4.0); LYMPH % 28.9 % (9.0-44.0); LYMPHOCYTE # 1.3 TH/MM3 (1.0-4.8); MEAN CELL VOLUME 96.9 FL (80.0-100.0); MEAN CORPUSCULAR HEMOGLOBIN 32.6 PG (27.0-34.0); MEAN CORPUSCULAR HGB CONC 33.6 % (32.0-36.0); MONO % 15.3 % (0.0-8.0); NEUT % 53.4 % (16.0-70.0); PLATELET COUNT 289 TH/MM3 (150-450); RED BLOOD COUNT 2.79 MIL/MM3 (4.00-5.30); RED CELL DISTRIBUTION WIDTH 14.2 % (11.6-17.2); WHITE BLOOD COUNT 4.6 TH/MM3 (4.0-11.0)
[2017-06-24 08:07] LABS: HEMO FLAGS AUTO DIFF
[2017-06-24] MEDS: PANTOPRAZOLE SOD 40 MG DELAYED RELEASE TAB PO SCH (08:15)
[2017-06-24] MEDS: GABAPENTIN 300 MG CAP PO SCH ×2 (08:15→12:10)
[2017-06-24] MEDS: DICYCLOMINE HCL 10 MG CAP PO SCH ×2 (08:15→12:13)
[2017-06-24] MEDS: DOCUSATE SODIUM 50 MG/SENNA 8.6 MG TAB PO SCH (08:16)
[2017-06-24] MEDS: SODIUM CHLORIDE 0.9% FLUSH 10 ML FLUSH IV FLUSH SCH (08:16)
[2017-06-24] MEDS: FAMOTIDINE 20 MG TAB PO SCH (08:16)
[2017-06-24] MEDS: CELECOXIB 100 MG CAP PO SCH (08:16)
[2017-06-24 08:36] LABS: BICARBONATE 21.2 MEQ/L (21.0-32.0); POTASSIUM 3.3 MEQ/L (3.5-5.1)
[2017-06-24 08:46] LABS: OVALOCYTES 1+ (NORMAL); PLATELET ESTIMATE SMEAR NORMAL (NORMAL); PLATELET MORPHOLOGY ENLARGED (NORMAL); SCAN/DIFF AUTO DIFF CONFIRMED; TOXIC GRANULATION 2+ (NORMAL)
[2017-06-24 10:15] VITALS: PULSE 63
--- NOTE | 2017-06-24 11:06 | HHI.DCPOC ---
Discharge Care Plan Diagnosis: (1) HIV (human immunodeficiency virus infection) (2) Sepsis Goals to Promote Your Health * To prevent worsening of your condition and complications * To maintain your health at the optimal level Directions to Meet Your Goals Take your medications as prescribed Follow your dietary instruction Follow activity as directed Keep your appointments as scheduled Take your immunizations and boosters as scheduled If your symptoms worsen call your PCP, if no PCP go to Urgent Care Center or Emergency Room Smoking is Dangerous to Your Health. Avoid second hand smoke Call the 24-hour hour crisis hotline for domestic abuse at Dio Patterson MD, R3 Jun 24, 2017 11:06
[2017-06-24] MEDS ORDERED: CELE100C PO (11:11)
[2017-06-24] MEDS ORDERED: BACT800T5 PO (11:12)
[2017-06-24] MEDS ORDERED: DICY10 PO (11:13)
[2017-06-24] MEDS ORDERED: PANT40TA3 PO (11:13)
[2017-06-24] MEDS ORDERED: POTASSIUM CHLORIDE 20 MEQ CONTROLLED RELEASE TAB PO ONE (11:15)
[2017-06-24 11:59] VITALS: BP 122/81; PULSE 66; RESP 18; TEMP 98.3; O2SAT 97
--- NOTE | 2017-06-24 12:06 | HHI.FPPN ---
Subjective Remarks Mrs. Spencer was afebrile with stable vital signs overnight. Patient reports that her abdominal pain has subsided; patient's diarrhea is also subsided and she did not have bowel movement overnight. Patient continues to have some abdominal "rumbling." Patient continues to deny chest pain, shortness of breath , or dysuria. Patient does not report joint pain. Patient reports agreement with establishing with ID physician as outpatient. (Dio Patterson MD, R3) Objective Vitals Vital Signs Date Time Temp Pulse Resp B/P (MAP) Pulse Ox O2 Delivery O2 Flow Rate FiO2 06/24/17 11:59 98.3 66 18 122/81 (95) 97 06/24/17 10:15 63 06/24/17 07:57 97.7 61 18 142/82 (102) 95 06/23/17 23:04 98.5 86 18 136/71 (92) 96 06/23/17 20:00 98.6 88 18 130/84 (99) 97 06/23/17 16:00 97.3 70 18 121/75 (90) 99 06/23/17 12:24 98 21 I/O 06/23/17 06/23/17 06/23/17 06/24/17 06/24/17 06/24/17 07:00 15:00 23:00 07:00 15:00 23:00 Intake Total 360 ml 960 ml 480 ml 480 ml Balance 360 ml 960 ml 480 ml 480 ml Intake Oral 360 ml 960 ml 480 ml 480 ml # Voids 2 5 3 4 # Bowel Movements 4 0 0 (Dio Patterson MD, R3) Result Diagram: 06/24/17 0720 06/24/17 0720 Imaging Last Impressions Chest X-Ray 06/19/17 1716 Signed Impressions: Service Date/Time: Monday, June 19, 2017 18:51 - CONCLUSION: No acute disease. Ld Bedoya MD Abdomen/Pelvis CT 06/19/17 0000 Signed Impressions: Service Date/Time: Monday, June 19, 2017 21:08 - CONCLUSION: No acute abnormality is seen. There is mild heterogeneity of the liver. Ld Bedoya MD Objective Remarks General: No acute distress Skin: No rashes or lesions, normal skin turgor, skin is moist CV: RRR, no murmurs. Normal perfusion. No LE edema Lungs: CTAB, no wheezing Abdomen: No pain to palpation; soft, nondistended Ext: No swelling, normal range of motion Neuro: Awake, alert, nonfocal. CN grossly normal. Peripheral and motor function grossly normal Psych: Appropriate mood and affect (Dio Patterson MD, R3) A/P Assessment and Plan Mrs. Spencer is a 51 year old female with a history of HIV: Seen and discussed with Dr. Ocampo (Dio Patterson MD, R3) Attending Attestation Medical rounds were conducted with Dr. Patterson this morning. EMR reviewed. Patient interviewed and examined with resident, orders and disposition discussed. Agree to content of this note, Kim Ocampo M.D. (Kim Ocampo MD) Problem List: (1) Sepsis ICD Codes: A41.9 - Sepsis, unspecified organism Status: Acute Plan: - IV fluid hydration discontinued eating normally with stable MAP (s/p 4 L boluses-> maintenance NS at 125ml/hr) -Will check outpatient BMP -ID consulted for management due to coexisting HIV and bacteremia Impression: UTI vs translocation. IVDU suspected. Patient placed on Rocephin 2gm IV daily, 2 D echo ordered, HAART discontinued. UDS ordered -Due to patient having negative repeat blood cultures x3 days, patient deemed stable for discharge home: -Will start patient on 160/800mg BID Bactrim; will continue until ID consultation (no stop date due to need for HIV PPX due to CD4 <200) Impression: Patient with WBC 18.4, tachycardia to 154bpm, T102.3F, BP 88/53, lactic acid 2. Abdominal and pelvic CT negative for acute process. UA with positive nitrite, large leukocyte esterase, 126 WBC, trace blood. Chest x-ray normal. Not concerning for meningitis on exam Blood cultures (06/19)- + for E Coli; pansensitive Urine cultures (06/19)- + for E Coli; pansensitive Repeat blood cultures (06/21)- negative to date Antibiotic History: Vancomycin (06/20-06/21) Zosyn (06/20-06/21) (2) HIV (human immunodeficiency virus infection) ICD Codes: Z21 - Human immunodeficiency virus (HIV) infection Status: Chronic Plan: -ID consulted: -Recommendation for stopping HAART and getting outpatient Genotype after patient makes effort and keeps appointment due to concerns about compliance -Patient provided with names for HIV practitioners (Dr. Ayala, Dr. Patton, Dr. Jackson); patient will contact them and I will also refer as outpatient. If patient cannot find provider in several days, she agrees to contacting Dr. Pacheco -Repeat labs obtained to assess status of HIV infection: -Absolute lymphocytes 676, CD4 count 181, CD8 count 358, HIV quant pending -Due to CD4 <200, will start Bactrim DS for Pneumocystis jiroveci ppx Impression: History of HIV, was controlled in the past, but inconsistent HAART use recently due to abdominal pain and vomiting. 11/2016 labs: HIV RNA 1 quant: not detected Absolute CD4 273, 38% helper T Absolute CD8 273, 38% CD8 Hepatitis panel negative (3) GI symptoms ICD Codes: R19.8 - Other specified symptoms and signs involving the digestive system and abdomen Status: Acute Plan: 06/23: reported worsening diarrhea with greenish watery BM 06/24: Diarrhea resolved - GI consulted for chronic abdominal pain and nausea/vomiting and uncertain diagnosis -EGD/Colonoscopy 06/21: Gastritis; normal colonoscopy -Biopsies obtained/pending -Continue Pantoprazole 40mg daily - Zofran PRN for nausea/vomiting, bowel regimen PRN if constipated. - Continue ranitidine and Tums which she was taking at home. -C diff testing deferred since diarrhea resolved -Will discharge home on Bentyl TID and on Protonix Impression: ~2mo epigastric abdominal pain associated with nausea and vomiting. ~20 lb weight loss. Frequent NSAID use Lipase is normal. AST and ALT are normal. ALP slightly high at 140. CT abdomen/pelvis w/p acute disease EKG- sinus, normal EKG (4) Rheumatoid arthritis ICD Codes: M06.9 - Rheumatoid arthritis, unspecified Status: Chronic Plan: 06/23-06/24: Improved wrist/finger joint pain after starting Celebrex -Continue Celebrex 100mg BID since gastritis seemed mild on endoscopy; will discharge home on Celebrex Impression: Chronic rheumatoid arthritis; patient reports taking excess Ibuprofen at home (5) Acute kidney injury ICD Codes: N17.9 - Acute kidney failure, unspecified Status: Resolved Plan: 06/24: ZAIN resolved; normal Cr (0.80) - Continue IV fluids - Avoid nephrotoxic agents - Renally dose medications Impression: Acute kidney injury (Cr 1.32 on admission), likely prerenal from sepsis, dehydration. (6) No contraindication to deep vein thrombosis (DVT) prophylaxis ICD Codes: Z78.9 - Other specified health status Status: Acute Plan: Lovenox 40 mg daily (7) Nutrition, metabolism, and development symptoms ICD Codes: R63.8 - Other symptoms and signs concerning food and fluid intake Status: Acute Plan: Fluids: Received 4 liter boluses; maintenance fluids normal saline at 125 mls/hr -Discontinued Diet: Regular diet Electrolytes: Will check outpatient BMP since hypokalemic during hospitalization (Dio Patterson MD, R3) Problem Qualifiers (1) Sepsis: Qualified Codes: A41.51 - Sepsis due to Escherichia coli [e. coli] (2) Rheumatoid arthritis: Qualified Codes: M06.9 - Rheumatoid arthritis, unspecified Dio Patterson MD, R3 Jun 24, 2017 12:06 Kim Ocampo MD Jun 24, 2017 12:39
[2017-06-24] MEDS: cefTRIAXone INJ 2,000 MG in SODIUM CHLORIDE 0.9% INJ 100 ML IV SCH (12:14)
[2017-06-24 15:52] LABS: HIV RNA LOG COPIES 2.3 (<1.30)
== END 2017-06-24 15:44 | disposition home or self-care (01) | DRG 871 ==
LOC: NEPE 17:10 → NEDA 22:39 → NEDH 06-20 02:46 → N03B 06-20 10:12 → N06B 06-22 16:47
PROVIDERS: ADMIT Family Medicine; ATTEND Family Medicine
PROC: 0DB68ZX Excision of Stomach, Via Natural or Artificial Opening Endoscopic, Diagnostic (ICD-10-PCS; principal; 2017-06-21 13:14)
PROC: 0DJD8ZZ Inspection of Lower Intestinal Tract, Via Natural or Artificial Opening Endoscopic (ICD-10-PCS; 2017-06-21 13:14)
DX: A41.51 Sepsis due to Escherichia coli [E. coli] (principal); R65.21 Severe sepsis with septic shock; N17.9 Acute kidney failure, unspecified; M35.00 Sjogren syndrome, unspecified; E86.0 Dehydration; N10 Acute pyelonephritis; M06.9 Rheumatoid arthritis, unspecified; K29.70 Gastritis, unspecified, without bleeding; B96.20 Unspecified Escherichia coli [E. coli] as the cause of diseases classified elsewhere; R63.4 Abnormal weight loss; G89.29 Other chronic pain; I10 Essential (primary) hypertension; Z21 Asymptomatic human immunodeficiency virus [HIV] infection status; Z91.14 Patient's other noncompliance with medication regimen; Z23 Encounter for immunization
CPT/HCPCS: 71020; 74177; 80048; 80053; 81001; 83605; 83690; 85025; 85027; 85610; 85730; 86355; 86357; 86359; 86360; 87040; 87077; 87086; 87186; 87205; 87536; 87804; 88305; 88312; 90686; 90732; 93005; 96361; 96365; 96366; 96375; J0696; J1650; J1885; J2405; J2543; J3370; J3480; J7030; J7050; Q2038; Q9967